=== PATIENT | female | born 1950 ===

== ENCOUNTER 2021-05-15 08:09 | Outpatient (REF) | payer MEDICARE, MEDICAID, SELFPAY ==
[2021-05-15 11:09] LABS: MANUAL DIFF FLAG NO
[2021-05-15 11:11] LABS: Basophils Percent Auto 0.5 % (0-2); Eosinophils Percent Auto 0.9 % (0-4); Hemoglobin 13.5 g/dl (12.0-16.0); Imm Gran Abs Auto 0.01 X10*3/uL (0.00-0.03); Imm Gran Pct Auto 0.2 % (0.0-0.4); Lymphocytes Absolute Auto 2.3 X10*3/uL (1.2-4.9); Lymphocytes Percent Auto 54.7 % (20-40); Mean Corpuscular HGB Conc 31.4 g/dl (31.0-35.0); Mean Corpuscular Hemoglobin 27.2 pg (27.0-33.0); Mean Corpuscular Volume 86.7 fL (80-98); Mean Platelet Volume 12.4 fL (9.4-12.3); Monocytes Absolute Auto 0.4 X10*3/uL (0.1-1.2); Monocytes Percent Auto 10.3 % (2-11); Neutrophils Absolute Auto 1.4 X10*3/uL (2.0-8.3); Neutrophils Percent Auto 33.4 % (45-73); Platelet Count 221 X10*3/uL (160-400); Red Blood Count 4.96 X10*6/uL (4.20-5.50); White Blood Count 4.3 X10*3/uL (4.8-10.8)
[2021-05-15 11:23] LABS: Alanine Aminotransferase 20 U/L (0-31); Albumin Level 4.7 g/dL (3.5-5.0); Alkaline Phosphatase 94 U/L (39-117); Anion Gap 14 (12-20); Aspartate Amino Transferase 22 U/L (5-31); Bilirubin Total 0.7 mg/dL (0.0-1.0); Blood Urea Nitrogen 13 mg/dL (9-16); Calcium 9.9 mg/dL (8.4-10.2); Carbon Dioxide 27 mmol/L (22-29); Chloride 105 mmol/L (96-108); Cholesterol 184 mg/dL; Estimated Glomerular Filt Rate > 60; Glucose Fasting 140 mg/dL (60-99); HDL Cholesterol 60 mg/dL; LDL Cholesterol Calculated 104 mg/dl; Potassium 4.6 mmol/L (3.3-5.1); Sodium 141 mmol/L (135-145); Total Protein 7.5 g/dL (6.5-8.0); Triglycerides 101 mg/dL
[2021-05-15 11:24] LABS: Estimated Average Glucose 163 mg/dL; Hemoglobin A1c % 7.3 %
[2021-05-15 11:30] LABS: Creatinine Urine 74.48 mg/dL; Microalbum/Creatinine Ratio Ur 6.7 ug/mg cr
[2021-05-17 02:27] LABS: LDL Cholesterol Direct 94 mg/dL (<100)
== END 2021-05-15 08:10 | disposition home or self-care (01) ==
LOC: HO.HMGCLDS 08:09
PROVIDERS: PCP Internal Medicine; Visit Provider Internal Medicine
DX: E13.9 Other specified diabetes mellitus without complications (principal); R03.0 Elevated blood-pressure reading, without diagnosis of hypertension; R00.0 Tachycardia, unspecified
CPT/HCPCS: 36415; 80053; 80061; 82043; 83036; 83721; 85025

== ENCOUNTER 2021-10-25 10:12 | Outpatient (REF) | payer MEDICARE, MEDICAID, SELFPAY ==
[2021-10-25 12:12] LABS: Alanine Aminotransferase 27 U/L (0-31); Albumin Level 4.6 g/dL (3.5-5.0); Alkaline Phosphatase 93 U/L (39-117); Anion Gap 13 (12-20); Aspartate Amino Transferase 22 U/L (5-31); Bilirubin Total 0.7 mg/dL (0.0-1.0); Blood Urea Nitrogen 13 mg/dL (9-16); Calcium 10.1 mg/dL (8.4-10.2); Carbon Dioxide 28 mmol/L (22-29); Chloride 104 mmol/L (96-108); Estimated Glomerular Filt Rate > 60; Glucose Random 131 mg/dL (60-115); Potassium 5.1 mmol/L (3.3-5.1); Sodium 140 mmol/L (135-145); Total Protein 7.4 g/dL (6.5-8.0)
[2021-10-25 12:22] LABS: Estimated Average Glucose 163 mg/dL; Hemoglobin A1c % 7.3 %
== END 2021-10-25 10:13 | disposition home or self-care (01) ==
LOC: HO.HMGCLDS 10:12
PROVIDERS: Visit Provider Internal Medicine
DX: E13.9 Other specified diabetes mellitus without complications (principal)
CPT/HCPCS: 36415; 80053; 83036

== ENCOUNTER 2022-02-04 07:35 | Outpatient (REF) | payer MEDICARE, MEDICAID, SELFPAY ==
[2022-02-04 11:46] LABS: Alanine Aminotransferase 19 U/L (0-31); Albumin Level 4.4 g/dL (3.5-5.0); Alkaline Phosphatase 91 U/L (39-117); Anion Gap 11 (12-20); Aspartate Amino Transferase 22 U/L (5-31); Bilirubin Total 0.5 mg/dL (0.0-1.0); Blood Urea Nitrogen 18 mg/dL (9-16); Calcium 9.3 mg/dL (8.4-10.2); Carbon Dioxide 28 mmol/L (22-29); Chloride 105 mmol/L (96-108); Estimated Glomerular Filt Rate > 60; Glucose Random 131 mg/dL (60-115); Potassium 4.3 mmol/L (3.3-5.1); Sodium 140 mmol/L (135-145)
[2022-02-04 12:14] LABS: Estimated Average Glucose 174 mg/dL; Hemoglobin A1c % 7.7 %
== END 2022-02-04 07:36 | disposition home or self-care (01) ==
LOC: HO.HMGCLDS 07:35
PROVIDERS: Visit Provider Internal Medicine
DX: E13.9 Other specified diabetes mellitus without complications (principal)
CPT/HCPCS: 36415; 80053; 83036

== ENCOUNTER 2022-06-04 07:42 | Outpatient (REF) | payer MEDICARE, MEDICAID, SELFPAY ==
[2022-06-04 11:57] LABS: Estimated Average Glucose 169 mg/dL; Hemoglobin A1c % 7.5 %
[2022-06-04 12:15] LABS: Alanine Aminotransferase 20 U/L (0-31); Albumin Level 4.6 g/dL (3.5-5.0); Alkaline Phosphatase 95 U/L (39-117); Anion Gap 15 (12-20); Aspartate Amino Transferase 25 U/L (5-31); Bilirubin Total 0.5 mg/dL (0.0-1.0); Blood Urea Nitrogen 14 mg/dL (9-16); Calcium 9.6 mg/dL (8.4-10.2); Carbon Dioxide 27 mmol/L (22-29); Chloride 104 mmol/L (96-108); Cholesterol 189 mg/dL; Estimated Glomerular Filt Rate > 60; Glucose Fasting 131 mg/dL (60-99); HDL Cholesterol 64 mg/dL; LDL Cholesterol Calculated 106 mg/dl; Potassium 4.6 mmol/L (3.3-5.1); Sodium 141 mmol/L (135-145); Total Protein 7.4 g/dL (6.5-8.0); Triglycerides 97 mg/dL
[2022-06-04 13:16] LABS: Creatinine Urine 48.67 mg/dL; Microalbumin Urine < 5.0 mg/L
== END 2022-06-04 07:43 | disposition home or self-care (01) ==
LOC: HO.HMGCLDS 07:42
PROVIDERS: PCP Internal Medicine; Visit Provider Internal Medicine
DX: E13.9 Other specified diabetes mellitus without complications (principal)
CPT/HCPCS: 36415; 80053; 80061; 82043; 83036

== ENCOUNTER 2023-02-09 10:32 | Outpatient (REF) | payer MEDICARE, MEDICAID, SELFPAY | END 2023-02-09 10:33 | disposition home or self-care (01) | LOC: HO.HMGCLDS 10:32 | PROVIDERS: PCP Internal Medicine; Visit Provider Internal Medicine | DX: E13.9 Other specified diabetes mellitus without complications (principal); I10 Essential (primary) hypertension | CPT/HCPCS: 36415; 80053; 80061; 82043; 83036; 85025 ==

== ENCOUNTER 2023-05-08 10:13 | Outpatient (REF) | payer MEDICARE, MEDICAID, SELFPAY ==
[2023-05-08 13:58] LABS: Estimated Average Glucose 177 mg/dL; Hemoglobin A1c % 7.8 % (<6.0)
[2023-05-08 14:37] LABS: Alanine Aminotransferase 25 U/L (0-31); Albumin Level 4.6 g/dL (3.5-5.0); Alkaline Phosphatase 86 U/L (39-117); Anion Gap 15 (12-20); Aspartate Amino Transferase 22 U/L (5-31); Bilirubin Total 0.7 mg/dL (0.0-1.0); Blood Urea Nitrogen 10 mg/dL (9-16); Calcium 10.1 mg/dL (8.4-10.2); Carbon Dioxide 27 mmol/L (22-29); Chloride 103 mmol/L (96-108); Estimated Glomerular Filt Rate > 60; Glucose Random 144 mg/dL (60-115); Potassium 4.1 mmol/L (3.3-5.1); Sodium 141 mmol/L (135-145); Total Protein 7.9 g/dL (6.5-8.0)
== END 2023-05-08 10:14 | disposition home or self-care (01) ==
LOC: HO.HMGCLDS 10:13
PROVIDERS: PCP Internal Medicine; Visit Provider Internal Medicine
DX: E13.9 Other specified diabetes mellitus without complications (principal); I10 Essential (primary) hypertension
CPT/HCPCS: 36415; 80053; 83036

== ENCOUNTER 2023-05-10 09:41 | Outpatient (AMB) | payer MEDICARE, MEDICAID, SELFPAY ==
[2023-05-10 09:45] VITALS: BP 152/82; PULSE 105; O2SAT 98; BMI 26.6
--- NOTE | 2023-05-10 09:45 | MHC.PC.OV ---
Vital Signs 05/10/23 09:45 Height 5 ft 5 in Weight 160 lb BMI 26.6 BP 152/82 H Blood Pressure Location Lt brachial Position Sitting Pulse 105 H Pulse Source Pulse Oximeter Pulse Oximetry (%) 98 Oxygen Delivery Method Room Air Intake Visit Reasons: 3m follow up Allergies diphtheria,pertussis (acell),tetanu Allergy (Unknown, Verified 05/10/23 09:45) extensive swelling, redness, redness and itching Medication List - Last Reconciled 05/10/23 by Lo Dodge MD glimepiride 2 mg PO DAILY 90 days losartan 25 mg PO DAILY 90 days losartan 50 mg PO DAILY Tobacco use date assessed: 05/10/23 Fall risk assessment: 1 Fall in past year Last assessed Fall Risk: 05/10/23 Dental Screening Dental Screen Date: 05/10/23 Did you have a dental visit in the last 12 months?: Yes Did you have a dental problem in the last 6 months where you did not have access to dental care?: No Was dental information given to patient?: Patient has dentist HPI 3m follow up HPI Details Patient is 72-year-old female came in today for her regular follow-up appointment Patient says that she fell 25 of April while walking in the morning she lost her footing and fell on her knee encountering skin injury Patient went to [facility] Emergency Room where x-ray was done, patient says that she was told there is no bony injury. She was started on cephalexin because the wound was study and was given a tetanus vaccine. She has finished antibiotic On examination left skin injury is healing well there is no signs of infection, patient may continue to cover it until completely healed. She is walking fine there is no pain while walking she is taking Tylenol. Diabetes mellitus: Patient is on glimepiride 2 mg she does not want to change the medication I wanted to change it to Jardiance Hemoglobin A1c came back at 7.8 she recently had labs done this month. Blood pressure continued to be high in 150s systolic it was on 55 in emergency room as well I am increasing her losartan dose to 50 mg. Follow-up 3 months labs to be done before visit. 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 Sister No problems noted. Sister No problems noted. Sister No problems noted. Son No problems noted. Daughter No problems noted. Social History Housing: House Alcohol intake: never Patient Tobacco Use Status: Never used Tobacco e-Cigarette/Vaping Use: Never Used service: No Current occupational status: retired Cognitive needs: No Hearing needs: No Vision needs: Yes Questionnaire PHQ-9 Over the last 2 weeks, how often have you been bothered by any of the following problems? 73088 - PHQ-9 Billing: Patient declined-do not bill Source: Developed by Drs. Nilesh López, Virginia Morrison, Baldemar Carbajal and colleagues, with an educational josafat from [employer]. Thrive Questionnaire Date Thrive assessed: 05/10/23 I am a: Patient What is your living situation today?: I choose not to answer this question Within the past 12 months, did the food you bought not last and you didn't have the money to get more?: I choose not to answer this question Within the past 12 months, did you worry whether your food would run out before you got money to buy more?: I choose not to answer this question Do you have trouble paying for medicines?: I choose not to answer this question Do you have trouble getting transportation to medical appointments?: I choose not to answer this question Do you have trouble paying your heating and electricity bill?: I choose not to answer this question Do you have trouble taking care of your child, family member or friend?: I choose not to answer this question Do you have trouble with day-to-day activities such as bathing, preparing meals, shopping, managing finances, etc.?: I choose not to answer this question Are you currently unemployed and looking for a job?: I choose not to answer this question Are you interested in more education?: I choose not to answer this question Currently or been in a relationship where the following occur: I choose not to answer this question KODY-7 AMB Questionnaire KODY-7 Date KODY - 7 assessed: 05/10/23 Source: Developed by Drs. Nilesh López, Virginia Morrison, Baldemar Carbajal and colleagues, with an educational josafat from [employer]. KODY-7 Assessment Billing KODY-7 Assessment Tool: pt declined-do not bill Review of Systems Const Denies chills and Denies fever(s) ENT Denies epistaxis and Denies nasal discharge Card Denies chest pain Resp Denies chest congestion, Denies cough and Denies hemoptysis GI Denies diarrhea and Denies nausea Skin/Breast Denies rash Neuro Reports no additional complaints Psych Reports no additional complaints Endo Reports no additional complaints Physical exam (Primary Care) Vital Signs: Last Vital Signs Pulse 105 H 05/10/23 09:45 BP 152/82 H 05/10/23 09:45 Pulse Ox 98 05/10/23 09:45 Oxygen Delivery Method Room Air 05/10/23 09:45 BMI result Body Mass Index 26.6 Tobacco/Smoking Status: Tobacco use Status Tobacco use date assessed 05/10/23 05/10/23 09:53 Patient Tobacco Use Status Never used Tobacco 05/10/23 09:53 e-Cigarette/Vaping Use Never Used 05/10/23 09:53 Thrive Assessment: Date of Thrive Assessment Date Thrive assessed 05/10/23 05/10/23 09:53 Currently or been in a relationship where the following occur: I choose not to answer this question Const General: cooperative, comfortable and no acute distress Orientation/consciousness: patient oriented x3 HENMT Head: Yes normocephalic Eyes General: appearance normal, both eyes and all related structures Neck Neck: Yes supple Resp Effort & Inspection: normal respiratory effort, no cough and no stridor Cardio Rhythm: regular rhythm Heart sounds: S1 normal heart sound present and S2 normal heart sound present Skin General skin exam: turgor normal Neuro General: patient oriented x3, tone normal and moves all extremities Extrem Elbow/forearm/wrist images: 1. 3 cm by 2 cm healing skin laceration without any signs of inflammation or infection Right lower extremity: no edema Left lower extremity: no edema Assessment and Plan Assessment & Plan (1) Diabetes 1.5, managed as type 2: Code(s): E13.9 - Other specified diabetes mellitus without complications (2) Hypertension, essential: Code(s): I10 - Essential (primary) hypertension (3) Left knee injury: Code(s): S89.92XA - Unspecified injury of left lower leg, initial encounter Qualifiers: Encounter type: initial encounter Qualified Code(s): S89.92XA - Unspecified injury of left lower leg, initial encounter (4) Laceration of skin of left knee without complication: Code(s): S81.012A - Laceration without foreign body, left knee, initial encounter Qualifiers: Encounter type: initial encounter Qualified Code(s): S81.012A - Laceration without foreign body, left knee, initial encounter (5) Fall (on)(from) sidewalk curb, initial encounter: Code(s): W10.1XXA - Fall (on)(from) sidewalk curb, initial encounter Plan Patient is 72-year-old female came in today for her regular follow-up appointment Patient says that she fell of April while walking in the morning she lost her footing and fell on her knee encountering skin injury Patient went to [facility] Emergency Room where x-ray was done, patient says that she was told there is no bony injury. She was started on cephalexin because the wound was study and was given a tetanus vaccine. She has finished antibiotic On examination left skin injury is healing well there is no signs of infection, patient may continue to cover it until completely healed. She is walking fine there is no pain while walking she is taking Tylenol. Diabetes mellitus: Patient is on glimepiride 2 mg she does not want to change the medication I wanted to change it to Jardiance Hemoglobin A1c came back at 7.8 she recently had labs done this month. Blood pressure continued to be high in 150s systolic it was on 55 in emergency room as well I am increasing her losartan dose to 50 mg. Follow-up 3 months labs to be done before visit. Orders: Orders Hemoglobin A1c 3 Months E13.9 - Other specified diabetes mellitus without complications, I10 - Essential (primary) hypertension Complete Blood Count Auto Diff 3 Months E13.9 - Other specified diabetes mellitus without complications, I10 - Essential (primary) hypertension Comprehensive Met. Panel 3 Months E13.9 - Other specified diabetes mellitus without complications, I10 - Essential (primary) hypertension Medications: New losartan 50 mg PO DAILY 90 tabs 0RF Discontinued losartan Discontinued Reason: Doctor's Order 25 mg PO DAILY 90 days 90 tabs 0RF Coding Level of Care Code Est Pt Level 4 (87323) Diagnoses Diabetes 1.5, managed as type 2 E13.9 Hypertension, essential I10 Injury of left knee, initial encounter S89.92XA Encounter type: initial encounter Laceration of skin of left knee without complication, initial encounter S81.012A Encounter type: initial encounter Fall (on)(from) sidewalk curb, initial encounter W10.1XXA
== END 2023-05-10 10:20 | disposition home or self-care (01) ==
PROVIDERS: PCP Internal Medicine; Visit Provider Internal Medicine
DX: E13.9 Other specified diabetes mellitus without complications (principal); I10 Essential (primary) hypertension; S89.92XA Unspecified injury of left lower leg, initial encounter; S81.012A Laceration without foreign body, left knee, initial encounter; W10.1XXA Fall (on)(from) sidewalk curb, initial encounter
CPT/HCPCS: 99214

== ENCOUNTER 2023-09-14 09:27 | Outpatient (REF) | payer MEDICARE, MEDICAID, SELFPAY ==
[2023-09-14 11:43] LABS: MANUAL DIFF FLAG NO
[2023-09-14 12:07] LABS: Basophils Percent Auto 0.2 % (0-2); Eosinophils Percent Auto 0.4 % (0-4); Estimated Average Glucose 177 mg/dL; Hemoglobin 13.2 g/dl (12.0-16.0); Hemoglobin A1c % 7.8 % (<6.0); Imm Gran Abs Auto 0.01 X10*3/uL (0.00-0.03); Imm Gran Pct Auto 0.2 % (0.0-0.4); Lymphocytes Absolute Auto 2.7 X10*3/uL (1.2-4.9); Mean Corpuscular HGB Conc 31.4 g/dl (31.0-35.0); Mean Corpuscular Hemoglobin 27.4 pg (27.0-33.0); Mean Corpuscular Volume 87.1 fL (80.0-98.0); Mean Platelet Volume 11.9 fL (9.4-12.3); Monocytes Absolute Auto 0.4 X10*3/uL (0.1-1.2); Monocytes Percent Auto 8.7 % (2-11); Neutrophils Absolute Auto 1.4 x10*3/uL (2.0-8.3); Neutrophils Percent Auto 30.5 % (45-73); Platelet Count 219 X10*3/uL (160-400); Red Blood Count 4.82 X10*6/uL (4.20-5.50); White Blood Count 4.5 X10*3/uL (4.8-10.8)
[2023-09-14 12:32] LABS: Alanine Aminotransferase 23 U/L (0-31); Albumin Level 4.6 g/dL (3.5-5.0); Alkaline Phosphatase 84 U/L (39-117); Anion Gap 13 (12-20); Aspartate Amino Transferase 26 U/L (5-31); Bilirubin Total 0.8 mg/dL (0.0-1.0); Blood Urea Nitrogen 12 mg/dL (9-16); Calcium 10.2 mg/dL (8.4-10.2); Carbon Dioxide 28 mmol/L (22-29); Chloride 102 mmol/L (96-108); Estimated Glomerular Filt Rate > 60; Glucose Random 147 mg/dL (60-115); Potassium 4.3 mmol/L (3.3-5.1); Sodium 139 mmol/L (135-145); Total Protein 7.6 g/dL (6.5-8.0)
== END 2023-09-14 09:28 | disposition home or self-care (01) ==
LOC: HO.HMGCLDS 09:27
PROVIDERS: PCP Internal Medicine; Visit Provider Internal Medicine
DX: I10 Essential (primary) hypertension (principal); E13.9 Other specified diabetes mellitus without complications
CPT/HCPCS: 36415; 80053; 83036; 85025

== ENCOUNTER 2023-09-26 13:25 | Outpatient (AMB) | payer MEDICARE, MEDICAID, SELFPAY ==
[2023-09-26 13:29] VITALS: BP 158/88; PULSE 73; O2SAT 98; BMI 26.2
--- NOTE | 2023-09-26 13:29 | A.OFFPC_ITS ---
Vital Signs 09/26/23 13:29 Height 5 ft 5 in Weight 157 lb 4 oz BMI 26.2 BP 158/88 H Blood Pressure Location Lt brachial Position Sitting Pulse 73 Pulse Source Pulse Oximeter Pulse Oximetry (%) 98 Oxygen Delivery Method Room Air Intake Visit Reasons: F/U per [place] Allergies diphtheria,pertussis (acell),tetanu Allergy (Unknown, Verified 09/26/23 13:29) extensive swelling, redness, redness and itching Medication List - Last Reconciled 09/26/23 by Lo Dodge MD glimepiride 2 mg PO DAILY 90 days losartan 50 mg PO DAILY Tobacco use date assessed: 09/26/23 Fall risk assessment: 1 Fall in past year Last assessed Fall Risk: 09/26/23 Dental Screening Dental Screen Date: 09/26/23 Did you have a dental visit in the last 12 months?: Yes Did you have a dental problem in the last 6 months where you did not have access to dental care?: No Was dental information given to patient?: Patient has dentist HPI F/U per [place] HPI Details Patient is 73-year-old female came in today for her regular follow-up appointment Patient says that every now and then she get left-sided chest pain She says that also sometimes it gets worse when she moves her left arm and she feels tingling in her 5th digit Since she is diabetic I have gotten EKG today which shows normal sinus rhythm no acute findings Her previous EKG was in 2020 that was within normal limit Most likely patient is having lower cervical radiculitis or upper thoracic radiculitis Diabetes mellitus: Patient is on glimepiride 2 mg I am increasing the dose to glimepiride 4 mg, however I would rather change her to Januvia or Jardiance Hemoglobin A1c came back at 7.8 she recently had labs done this month. Blood pressure continued to be high in 150s systolic , patient is on losartan 50 mg She says that at home it is running around 130s and 120s systolic It seems as if patient have white coat hypertension as well Patient have chronic mild neutropenia, we will continue to monitor Follow-up 3 months labs to be done before visit. REPLACED BY [facility] Medical History PPD positive Colonoscopy refused Diabetes 1.5, managed as type 2 Surgical History History of hysterectomy Family History Father Diabetes mellitus Mother No problems noted. Sister No problems noted. Sister No problems noted. Sister No problems noted. Son No problems noted. Daughter No problems noted. Social History Housing: House Alcohol intake: never Patient Tobacco Use Status: Never used Tobacco e-Cigarette/Vaping Use: Never Used service: No Current occupational status: retired Cognitive needs: No Hearing needs: No Vision needs: Yes Questionnaire PHQ-9 Over the last 2 weeks, how often have you been bothered by any of the following problems? 1. Little interest or pleasure in doing things: not at all 2. Feeling down, depressed, or hopeless: not at all 3. Trouble falling or staying asleep, or sleeping too much: not at all 4. Feeling tired or having little energy: not at all 5. Poor appetite or overeating: not at all 6. Feeling bad about yourself - or that you are a failure or have let yourself or your family down: not at all 7. Trouble concentrating on things, such as reading the newspaper or watching television: not at all 8. Moving or speaking so slowly that other people could have noticed. Or the opposite - being so fidgety or restless that you have been moving around a lot more than usual: not at all 9. Thoughts that you would be better off or of hurting yourself in some way: not at all Total score: 0 Depression Screening Interpretation: Negative Depression Screening Done: Yes 66864 - PHQ-9 Billing: Yes Source: Developed by Drs. Nilesh López, Virginia Morrison, Baldemar Carbajal and colleagues, with an educational josafat from [employer]. Thrive Questionnaire Date Thrive assessed: 09/26/23 I am a: Patient What is your living situation today?: I have a steady place to live Within the past 12 months, did the food you bought not last and you didn't have the money to get more?: Never true Within the past 12 months, did you worry whether your food would run out before you got money to buy more?: Never true Do you have trouble paying for medicines?: No Do you have trouble getting transportation to medical appointments?: No Do you have trouble paying your heating and electricity bill?: No Do you have trouble taking care of your child, family member or friend?: No Do you have trouble with day-to-day activities such as bathing, preparing meals, shopping, managing finances, etc.?: No Are you currently unemployed and looking for a job?: No Are you interested in more education?: No Please select the resources that you would like help with: None Currently or been in a relationship where the following occur: no concerns reported THRIVE Score: 0 AUDIT C Alcohol Use Questionnaire (AUDIT-C) 1. How often do you have a drink containing alcohol?: Never 3. How often do you have six or more drinks on one occasion?: Never Total Score: 0 Score Reviewed/Action Taken: Yes KODY-7 AMB Questionnaire KODY-7 Date KODY - 7 assessed: 09/26/23 Feeling nervous, anxious, or on edge: 0 = Not at all Not being able to stop or control worryin = Not at all Worrying too much about different things: 0 = Not at all Trouble relaxin = Not at all Being so restless that it is hard to sit still: 0 = Not at all Becoming easily annoyed or irritable: 0 = Not at all Feeling afraid as if something awful might happen: 0 = Not at all Total KODY-7 score (0-4 normal; 5-9 mild; 10-14 moderate; 15-21 severe): 0 Source: Developed by Drs. Nilesh López, Virginia Morrison, Baldemar Carbajal and colleagues, with an educational josafat from [employer]. KODY-7 Assessment Billing KODY-7 Assessment Tool: KODY-7 Assessment 61711 Review of Systems Const Denies chills and Denies fever(s) ENT Denies epistaxis and Denies nasal discharge Resp Denies chest congestion, Denies cough and Denies hemoptysis GI Denies diarrhea and Denies nausea Skin/Breast Denies rash Neuro Reports no additional complaints Psych Reports no additional complaints Endo Reports no additional complaints Physical exam (Primary Care) Vital Signs: Last Vital Signs Pulse 73 09/26/23 13:29 BP 158/88 H 09/26/23 13:29 Pulse Ox 98 09/26/23 13:29 Oxygen Delivery Method Room Air 09/26/23 13:29 BMI result Body Mass Index 26.2 Tobacco/Smoking Status: Tobacco use Status Tobacco use date assessed 09/26/23 09/26/23 13:31 Patient Tobacco Use Status Never used Tobacco 09/26/23 13:31 e-Cigarette/Vaping Use Never Used 09/26/23 13:31 PHQ-9: PHQ-9 Score PHQ-9: Total score 0 09/26/23 13:39 Depression Screening Interpretation: Negative Thrive Assessment: Date of Thrive Assessment Date Thrive assessed 09/26/23 09/26/23 13:39 Currently or been in a relationship where the following occur: no concerns reported Const General: cooperative, comfortable and no acute distress Orientation/consciousness: patient oriented x3 HENMT Head: Yes normocephalic Eyes General: appearance normal, both eyes and all related structures Neck Neck: Yes supple Resp Effort & Inspection: normal respiratory effort, no cough and no stridor Cardio Rhythm: regular rhythm Heart sounds: S1 normal heart sound present and S2 normal heart sound present Skin General skin exam: turgor normal Neuro General: patient oriented x3, tone normal and moves all extremities Extrem Right lower extremity: no edema Left lower extremity: no edema Office Procedures EKG [id number], Complete Assessment and Plan Assessment & Plan (1) Diabetes 1.5, managed as type 2: Code(s): E13.9 - Other specified diabetes mellitus without complications (2) Hypertension, essential: Code(s): I10 - Essential (primary) hypertension (3) Colon cancer screening: Code(s): Z12.11 - Encounter for screening for malignant neoplasm of colon (4) Chest pain: Code(s): R07.9 - Chest pain, unspecified Qualifiers: Chest pain type: other chest pain Qualified Code(s): R07.89 - Other chest pain (5) White coat syndrome with hypertension: Code(s): I10 - Essential (primary) hypertension Plan Patient is 73-year-old female came in today for her regular follow-up appointment Patient says that every now and then she get left-sided chest pain She says that also sometimes it gets worse when she moves her left arm and she feels tingling in her 5th digit Since she is diabetic I have gotten EKG today which shows normal sinus rhythm no acute findings Her previous EKG was in 2020 that was within normal limit Most likely patient is having lower cervical radiculitis or upper thoracic ra diculitis Diabetes mellitus: Patient is on glimepiride 2 mg I am increasing the dose to glimepiride 4 mg, however I would rather change her to Januvia or Jardiance Hemoglobin A1c came back at 7.8 she recently had labs done this month. Blood pressure continued to be high in 150s systolic , patient is on losartan 50 mg She says that at home it is running around 130s and 120s systolic It seems as if patient have white coat hypertension as well Patient have chronic mild neutropenia, we will continue to monitor Follow-up 3 months labs to be done before visit. Orders: Orders AMB EKG-In Office Today R07.9 - Chest pain, unspecified Hemoglobin A1c Today E13.9 - Other specified diabetes mellitus without complications, I10 - Essential (primary) hypertension, R03.0 - Elevated blood- pressure reading, without diagnosis of hypertension Comprehensive Met. Panel Today E13.9 - Other specified diabetes mellitus without complications, I10 - Essential (primary) hypertension, R03.0 - Elevated blood- pressure reading, without diagnosis of hypertension Complete Blood Count Auto Diff Today E13.9 - Other specified diabetes mellitus without complications, I10 - Essential (primary) hypertension, R03.0 - Elevated blood-pressure reading, without diagnosis of hypertension Microalbumin, Random (w Creat) Today E13.9 - Other specified diabetes mellitus without complications, I10 - Essential (primary) hypertension, R03.0 - Elevated blood-pressure reading, without diagnosis of hypertension LDL Cholesterol Direct Today E13.9 - Other specified diabetes mellitus without complications, I10 - Essential (primary) hypertension, R03.0 - Elevated blood- pressure reading, without diagnosis of hypertension Referrals Gastroenterology Referral Z12.11 - Encounter for screening for malignant neoplasm of colon Medications: Changed From glimepiride 2 mg PO DAILY 90 days 90 tabs 1RF To glimepiride 4 mg PO DAILY 90 tabs 0RF 90 days Coding Level of Care Code Est Pt Level 4 (37528) Diagnoses Diabetes 1.5, managed as type 2 E13.9 Hypertension, essential I10 Colon cancer screening Z12.11 Other chest pain R07.89 Chest pain type: other chest pain White coat syndrome with hypertension I10 CPT Codes EKG - CPT: 49957-Cvyivefwryvojvegh, Complete ([id number]) Additional Codes KODY-7 Assessment Billing - KODY-7 Assessment Tool: KODY-7 Assessment 80642 ([id number])
== END 2023-09-26 14:06 | disposition home or self-care (01) ==
LOC: HO.HMGC 13:25
PROVIDERS: PCP Internal Medicine; Visit Provider Internal Medicine
DX: E13.9 Other specified diabetes mellitus without complications (principal); I10 Essential (primary) hypertension; Z12.11 Encounter for screening for malignant neoplasm of colon; R07.89 Other chest pain
CPT/HCPCS: 93000; 99214

== ENCOUNTER 2023-11-27 09:30 | Outpatient (REF) | payer MEDICARE, MEDICAID, SELFPAY ==
[2023-11-27 10:24] LABS: MANUAL DIFF FLAG NO
[2023-11-27 10:31] LABS: Basophils Percent Auto 0.5 % (0-2); Eosinophils Percent Auto 0.7 % (0-4); Hematocrit 40.9 % (37.0-47.0); Hemoglobin 12.8 g/dl (12.0-16.0); Imm Gran Abs Auto 0.01 X10*3/uL (0.00-0.03); Imm Gran Pct Auto 0.2 % (0.0-0.4); Lymphocytes Absolute Auto 2.5 X10*3/uL (1.2-4.9); Lymphocytes Percent Auto 59.6 % (20-40); Mean Corpuscular HGB Conc 31.3 g/dl (31.0-35.0); Mean Corpuscular Hemoglobin 27.5 pg (27.0-33.0); Mean Platelet Volume 11.4 fL (9.4-12.3); Monocytes Absolute Auto 0.3 X10*3/uL (0.1-1.2); Monocytes Percent Auto 8.2 % (2-11); Neutrophils Absolute Auto 1.3 x10*3/uL (2.0-8.3); Neutrophils Percent Auto 30.8 % (45-73); Platelet Count 274 X10*3/uL (160-400); Red Blood Count 4.65 X10*6/uL (4.20-5.50); Red Cell Distribution Width 12.8 % (11.0-16.0); White Blood Count 4.1 X10*3/uL (4.8-10.8)
[2023-11-27 10:39] LABS: Estimated Average Glucose 192 mg/dL; Hemoglobin A1c % 8.3 % (<6.0)
[2023-11-27 11:00] LABS: Alanine Aminotransferase 18 U/L (0-31); Albumin Level 4.5 g/dL (3.5-5.0); Alkaline Phosphatase 98 U/L (39-117); Anion Gap 11 (12-20); Aspartate Amino Transferase 19 U/L (5-31); Bilirubin Total 0.9 mg/dL (0.0-1.0); Blood Urea Nitrogen 11 mg/dL (9-16); Calcium 9.8 mg/dL (8.4-10.2); Carbon Dioxide 29 mmol/L (22-29); Chloride 103 mmol/L (96-108); Estimated Glomerular Filt Rate > 60; Glucose Random 148 mg/dL (60-115); Potassium 4.4 mmol/L (3.3-5.1); Sodium 139 mmol/L (135-145); Total Protein 7.4 g/dL (6.5-8.0)
[2023-11-27 13:53] LABS: Creatinine Urine 28.79 mg/dL; Microalbumin Urine < 5.0 mg/L
[2023-11-28 16:03] LABS: LDL Cholesterol Direct 95 mg/dL (<100)
== END 2023-11-27 09:31 | disposition home or self-care (01) ==
LOC: HO.HMGCLDS 09:30
PROVIDERS: PCP Internal Medicine; Visit Provider Internal Medicine
DX: E13.9 Other specified diabetes mellitus without complications (principal); R03.0 Elevated blood-pressure reading, without diagnosis of hypertension; I10 Essential (primary) hypertension
CPT/HCPCS: 36415; 80053; 82570; 83036; 83721; 85025

== ENCOUNTER 2023-11-28 13:20 | Outpatient (AMB) | payer MEDICARE, MEDICAID, SELFPAY ==
[2023-11-28 13:22] VITALS: BP 148/82; PULSE 85; O2SAT 96; BMI 26.1
--- NOTE | 2023-11-28 13:22 | A.OFFPC_ITS ---
Vital Signs 3 11/28/23 13:22 Height 5 ft 5 in Weight 157 lb 2 oz BMI 26.1 BP 148/82 H Blood Pressure Location Lt brachial Position Sitting Pulse 85 Pulse Source Pulse Oximeter Pulse Oximetry (%) 96 Oxygen Delivery Method Room Air Intake Visit Reasons: 3 month follow up Allergies diphtheria,pertussis (acell),tetanu Allergy (Unknown, Verified 11/28/23 13:28) extensive swelling, redness, redness and itching Medication List - Last Reconciled 11/28/23 by Lo Dodge MD glimepiride 4 mg PO DAILY 90 days losartan 50 mg PO DAILY Tobacco use date assessed: 11/28/23 Fall risk assessment: 1 Fall in past year Last assessed Fall Risk: 11/28/23 Dental Screening Dental Screen Date: 11/28/23 Did you have a dental visit in the last 12 months?: Yes Did you have a dental problem in the last 6 months where you did not have access to dental care?: No Was dental information given to patient?: Patient has dentist HPI 3 month follow up 2 HPI0 Details Patient is 73-year-old female came in today for her regular follow-up appointment Patient says that she fell in April of last year on her left knee, and is now having pain off and on especially when she tried to exercise I have ordered a baseline x-ray of her knee and she will be evaluated by Orthopedic Diabetes mellitus: Patient is on glimepiride 4 mg , hemoglobin A1c has worsened to 8.4, she would like to try metformin again I have sent metformin 500 mg she is to continue with glimepiride as well Hypertension: patient is on losartan 50 mg She says that at home it is running around 130s and 120s systolic It seems as if patient have white coat hypertension as well Patient have chronic mild neutropenia, we will continue to monitor Follow-up 3 months labs to be done before visit. 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 Sister No problems noted. Sister No problems noted. Sister No problems noted. Son No problems noted. Daughter No problems noted. Social History Housing: House Alcohol intake: never Patient Tobacco Use Status: Never used Tobacco e-Cigarette/Vaping Use: Never Used service: No Current occupational status: retired Cognitive needs: No Hearing needs: No Vision needs: Yes Questionnaire Thrive Questionnaire Date Thrive assessed: 09/26/23 AUDIT C Alcohol Use Questionnaire (AUDIT-C) 1. How often do you have a drink containing alcohol?: Never 3. How often do you have six or more drinks on one occasion?: Never Total Score: 0 Score Reviewed/Action Taken: Yes KODY-7 AMB Questionnaire KODY-7 Date KODY - 7 assessed: 09/26/23 Source: Developed by Drs. Nilesh López, Virginia Morrison, Baldemar Carbajal and colleagues, with an educational josafat from [employer]. Review of Systems Const Denies chills and Denies fever(s) ENT Denies epistaxis and Denies nasal discharge Card Denies chest pain Resp Denies chest congestion, Denies cough and Denies hemoptysis GI Denies diarrhea and Denies nausea Skin/Breast Denies rash Neuro Reports no additional complaints Psych Reports no additional complaints Endo Reports no additional complaints Physical exam (Primary Care) Vital Signs: Last Vital Signs Pulse 85 11/28/23 13:22 BP 148/82 H 11/28/23 13:22 Pulse Ox 96 11/28/23 13:22 Oxygen Delivery Method Room Air 11/28/23 13:22 BMI result Body Mass Index 26.1 Tobacco/Smoking Status: Tobacco use Status Tobacco use date assessed 11/28/23 11/28/23 13:29 Patient Tobacco Use Status Never used Tobacco 11/28/23 13:25 e-Cigarette/Vaping Use Never Used 11/28/23 13:25 Thrive Assessment: Date of Thrive Assessment Date Thrive assessed 09/26/23 11/28/23 13:25 Const General: cooperative, comfortable and no acute distress Orientation/consciousness: patient oriented x3 HENMT Head: Yes normocephalic Eyes General: appearance normal, both eyes and all related structures Neck Neck: Yes supple Resp Effort & Inspection: normal respiratory effort, no cough and no stridor Cardio Rhythm: regular rhythm Heart sounds: S1 normal heart sound present and S2 normal heart sound present Skin General skin exam: turgor normal Neuro General: patient oriented x3, tone normal and moves all extremities Extrem Right lower extremity: no edema Left lower extremity: no edema Knee images: 2 1. Discomfort with full flexion Assessment and Plan Assessment & Plan (1) Knee pain, left: Code(s): M25.562 - Pain in left knee Qualifiers: Chronicity: chronic Qualified Code(s): M25.562 - Pain in left knee; G89.29 - Other chronic pain (2) Left knee injury: Code(s): S89.92XA - Unspecified injury of left lower leg, initial encounter Qualifiers: Encounter type: initial encounter Qualified Code(s): S89.92XA - Unspecified injury of left lower leg, initial encounter (3) Diabetes 1.5, managed as type 2: Code(s): E13.9 - Other specified diabetes mellitus without complications (4) Hypertension, essential: Code(s): I10 - Essential (primary) hypertension (5) Neutropenia: Code(s): D70.9 - Neutropenia, unspecified Qualifiers: Neutropenia type: unspecified Qualified Code(s): D70.9 - Neutropenia, unspecified Plan Patient is 73-year-old female came in today for her regular follow-up appointment Patient says that she fell in April of last year on her left knee, and is now having pain off and on especially when she tried to exercise I have ordered a baseline x-ray of her knee and she will be evaluated by Orthopedic Diabetes mellitus: Patient is on glimepiride 4 mg , hemoglobin A1c has worsened to 8.4, she would like to try metformin again I have sent metformin 500 mg she is to continue with glimepiride as well Hypertension: patient is on losartan 50 mg She says that at home it is running around 130s and 120s systolic It seems as if patient have white coat hypertension as well Patient have chronic mild neutropenia, we will continue to monitor Follow-up 3 months labs to be done before visit. Orders: Orders 2 Microalbumin, Random (w Creat) Today E13.9 - Other specified diabetes mellitus without complications XR knee LT 2V Today M25.562 - Pain in left knee Hemoglobin A1c 3 Months E13.9 - Other specified diabetes mellitus without complications, S89.92XA - Unspecified injury of left lower leg, initial encounter Comprehensive Met. Panel 3 Months E13.9 - Other specified diabetes mellitus without complications, S89.92XA - Unspecified injury of left lower leg, initial encounter Referrals 2 Orthopedics Referral M25.562 - Pain in left knee Medications: New 2 metformin 500 mg PO DAILY 90 tabs 1RF Coding Level of Care Code Est Pt Level 4 (50987) Diagnoses Chronic pain of left knee M25.562; G89.29 Chronicity: chronic Injury of left knee, initial encounter S89.92XA Encounter type: initial encounter Diabetes 1.5, managed as type 2 E13.9 Hypertension, essential I10 Neutropenia, unspecified type D70.9 Neutropenia type: unspecified
== END 2023-11-28 13:49 | disposition home or self-care (01) ==
PROVIDERS: PCP Internal Medicine; Visit Provider Internal Medicine
DX: M25.562 Pain in left knee (principal); E13.9 Other specified diabetes mellitus without complications; D70.9 Neutropenia, unspecified; G89.29 Other chronic pain; S89.92XA Unspecified injury of left lower leg, initial encounter; I10 Essential (primary) hypertension
CPT/HCPCS: 99214

== ENCOUNTER 2023-11-28 13:53 | Outpatient (REF) | payer MEDICARE, MEDICAID, SELFPAY ==
--- NOTE | ~2023-11-28 | XR_ITS ---
EXAMINATION: XR KNEE, LEFT CLINICAL INFORMATION: Pain in left knee. COMPARISON: None available. TECHNIQUE: 2 view of the left knee. FINDINGS: Trace joint effusion. Vjdy-ic-sklqherz narrowing of the medial compartment. Tiny medial marginal and posterior patellar osteophytes. XR/XR knee LT 2V IMPRESSION: Mild degenerative changes.
== END 2023-11-28 13:54 | disposition home or self-care (01) ==
LOC: HO.HMGCX 13:53
PROVIDERS: PCP Internal Medicine; Visit Provider Internal Medicine
DX: M25.562 Pain in left knee (principal)
CPT/HCPCS: 73560

== ENCOUNTER → 2023-12-01 10:47 | Outpatient (BNVA) | payer MEDICARE, MEDICAID, SELFPAY | PROVIDERS: PCP Internal Medicine; Visit Provider Nurse Practitioner Family ==

== ENCOUNTER 2023-12-13 10:01 | Outpatient (AMB) | payer MEDICARE, MEDICAID, SELFPAY ==
[2023-12-13 10:03] VITALS: BMI 26.1
--- NOTE | 2023-12-13 10:03 | A.OFFVIS_ITS ---
Vital Signs 12/13/23 10:03 Height 5 ft 5 in Weight 157 lb BMI 26.1 Intake Visit Reasons: [employer]-Chronic pain left knee Intake Note: Tari is a 73 year old female who presents as a new patient with left knee pain and giving way. The patient states that she injured her knee several months ago when she tripped while walking. Since that time her pain and mechanical symptoms have gotten worse. She has failed the last 6 weeks of conservative treatment. She has done physical therapy exercises which aggravated her pain. She has also tried Tylenol and ibuprofen which gave her no relief. She states that her left knee will give out several times per day. 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 Sister No problems noted. Sister No problems noted. Sister No problems noted. Son No problems noted. Daughter No problems noted. Social History (Updated 12/13/23 @ 10:11 by Litzy Aragon CMA) Housing: House Alcohol intake: never Patient Tobacco Use Status: Never used Tobacco e-Cigarette/Vaping Use: Never Used service: No Current occupational status: retired Current occupation: Right hand dominant Cognitive needs: No Hearing needs: No Vision needs: Yes Physical Exam Vital Signs: BMI result Body Mass Index 26.1 Const Other: Well-nourished well-developed very friendly female awake alert and oriented x3 in no acute distress Extrem Other: Bilateral lower extremity examination shows good capillary refill, no skin lesions noted, normal sensation light touch Left knee examination shows a minimal effusion, minimal crepitus with range of motion, tenderness along her medial joint line, positive Lili's test, no instability Results Reviewed Results Reviewed: Standing full weight-bearing x-rays of the patient's left knee show mild joint space narrowing, no acute bony abnormalities Assessment & Plan Assessment & Plan (1) Knee pain, left: Code(s): M25.562 - Pain in left knee Category: Medical Qualifiers: Chronicity: chronic Qualified Code(s): M25.562 - Pain in left knee; G89.29 - Other chronic pain Plan Ms. Burroughs presents with progressively worsening left knee pain and mechanical symptoms most likely due to a tear of her medial meniscus. Thus, I will send the patient for an MRI of her left knee for further evaluation. I will see her back once the MRI is completed to discuss the findings and treatment options. Feel free to call me at any time should questions regarding her orthopedic management arise. Thank you very much for asking me to see this very friendly patient. I spent 20 minutes in reviewing the patient's records and imaging studies, seeing the patient and documenting in the medical record. Orders: Orders MR knee LT wo con 12/13/23 S83.242A - Other tear of medial meniscus, current injury, left knee, initial encounter Coding Level of Care Code New Pt Level 2 (61308) Diagnoses Chronic pain of left knee M25.562; G89.29 Chronicity: chronic
== END 2023-12-13 10:31 | disposition home or self-care (01) ==
PROVIDERS: PCP Internal Medicine; Visit Provider Orthopaedic Surgery
DX: M25.562 Pain in left knee (principal); G89.29 Other chronic pain
CPT/HCPCS: 99203

== ENCOUNTER → 2023-12-13 10:01 | Outpatient (BNVA) | payer MEDICARE, MEDICAID, SELFPAY | PROVIDERS: PCP Internal Medicine; Visit Provider Orthopaedic Surgery | DX: M25.562 Pain in left knee (principal); G89.29 Other chronic pain | CPT/HCPCS: 99202 ==

== ENCOUNTER 2024-04-16 06:20 | Outpatient (REF) | payer MEDICARE, MEDICAID, SELFPAY ==
[2024-04-16 10:35] LABS: Estimated Average Glucose 169 mg/dL; Hemoglobin A1c % 7.5 % (<6.0)
[2024-04-16 10:47] LABS: Alanine Aminotransferase 19 U/L (0-31); Albumin Level 4.3 g/dL (3.5-5.0); Alkaline Phosphatase 89 U/L (39-117); Anion Gap 14 (12-20); Aspartate Amino Transferase 19 U/L (5-31); Bilirubin Total 0.6 mg/dL (0.0-1.0); Blood Urea Nitrogen 14 mg/dL (9-16); Calcium 9.6 mg/dL (8.4-10.2); Carbon Dioxide 28 mmol/L (22-29); Chloride 103 mmol/L (96-108); Estimated Glomerular Filt Rate > 60; Glucose Random 145 mg/dL (60-115); Potassium 4.8 mmol/L (3.3-5.1); Sodium 140 mmol/L (135-145)
[2024-04-16 12:25] LABS: Creatinine Urine 26.13 mg/dL; Microalbumin Urine < 5.0 mg/L
== END 2024-04-16 06:21 | disposition home or self-care (01) ==
LOC: HO.HMGCLDS 06:20
PROVIDERS: PCP Internal Medicine; Visit Provider Internal Medicine
DX: E13.9 Other specified diabetes mellitus without complications (principal); S89.92XA Unspecified injury of left lower leg, initial encounter
CPT/HCPCS: 36415; 80053; 82043; 82570; 83036

== ENCOUNTER 2024-04-16 11:55 | Outpatient (AMB) | payer MEDICARE, MEDICAID, SELFPAY ==
[2024-04-16 11:57] VITALS: BP 142/84; PULSE 75; O2SAT 98; BMI 24.2
--- NOTE | 2024-04-16 11:57 | A.OFFPC_ITS ---
Vital Signs 04/16/24 11:57 Height 5 ft 5 in Weight 145 lb 8 oz BMI 24.2 BP 142/84 H Blood Pressure Location Lt brachial Position Sitting Pulse 75 Pulse Source Pulse Oximeter Pulse Oximetry (%) 98 Oxygen Delivery Method Room Air Intake Visit Reasons: Eye Cataract surgery Allergies diphtheria,pertussis (acell),tetanu Allergy (Unknown, Verified 04/16/24 11:58) extensive swelling, redness, redness and itching Tobacco use date assessed: 04/16/24 Fall risk assessment: No Falls in past year Last assessed Fall Risk: 04/16/24 Dental Screening Dental Screen Date: 04/16/24 Did you have a dental visit in the last 12 months?: Yes Did you have a dental problem in the last 6 months where you did not have access to dental care?: No Was dental information given to patient?: Patient has dentist HPI Eye Cataract surgery HPI Details Patient is a 73-year-old female came in today for preop clearance for cataract surgery This coming by Dr. 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 Sister No problems noted. Sister No problems noted. Sister No problems noted. Son No problems noted. Daughter No problems noted. Social History Housing: House Alcohol intake: never Patient Tobacco Use Status: Never used Tobacco e-Cigarette/Vaping Use: Never Used service: No Current occupational status: retired Current occupation: Right hand dominant Cognitive needs: No Hearing needs: No Vision needs: Yes Questionnaire PHQ-9 Over the last 2 weeks, how often have you been bothered by any of the following problems? 1. Little interest or pleasure in doing things: not at all 2. Feeling down, depressed, or hopeless: not at all 3. Trouble falling or staying asleep, or sleeping too much: not at all 4. Feeling tired or having little energy: not at all 5. Poor appetite or overeating: not at all 6. Feeling bad about yourself - or that you are a failure or have let yourself or your family down: not at all 7. Trouble concentrating on things, such as reading the newspaper or watching television: not at all 8. Moving or speaking so slowly that other people could have noticed. Or the opposite - being so fidgety or restless that you have been moving around a lot more than usual: not at all 9. Thoughts that you would be better off or of hurting yourself in some way: not at all Total score: 0 Depression Screening Interpretation: Negative Depression Screening Done: Yes 48657 - PHQ-9 Billing: Yes Source: Developed by Drs. Nilesh López, Virginia Morrison, Baldemar Carbajal and colleagues, with an educational josafat from [employer]. Thrive Questionnaire Date Thrive assessed: 04/16/24 I am a: Patient What is your living situation today?: I choose not to answer this question Within the past 12 months, did the food you bought not last and you didn't have the money to get more?: I choose not to answer this question Within the past 12 months, did you worry whether your food would run out before you got money to buy more?: I choose not to answer this question Do you have trouble paying for medicines?: I choose not to answer this question Do you have trouble getting transportation to medical appointments?: I choose not to answer this question Do you have trouble paying your heating and electricity bill?: I choose not to answer this question Do you have trouble taking care of your child, family member or friend?: I ch oose not to answer this question Do you have trouble with day-to-day activities such as bathing, preparing meals, shopping, managing finances, etc.?: I choose not to answer this question Are you currently unemployed and looking for a job?: I choose not to answer this question Are you interested in more education?: I choose not to answer this question Please select the resources that you would like help with: None Currently or been in a relationship where the following occur: I choose not to answer THRIVE Score: 0 AUDIT C Alcohol Use Questionnaire (AUDIT-C) 1. How often do you have a drink containing alcohol?: Never 3. How often do you have six or more drinks on one occasion?: Never Total Score: 0 Score Reviewed/Action Taken: Yes KODY-7 AMB Questionnaire KODY-7 Date KODY - 7 assessed: 04/16/24 Feeling nervous, anxious, or on edge: 0 = Not at all Not being able to stop or control worryin = Not at all Worrying too much about different things: 0 = Not at all Trouble relaxin = Not at all Being so restless that it is hard to sit still: 0 = Not at all Becoming easily annoyed or irritable: 0 = Not at all Feeling afraid as if something awful might happen: 0 = Not at all Total KODY-7 score (0-4 normal; 5-9 mild; 10-14 moderate; 15-21 severe): 0 Source: Developed by Drs. Nilesh López, Virginia Morrison, Baldemar Carbajal and colleagues, with an educational josafat from [employer]. KODY-7 Assessment Billing KODY-7 Assessment Tool: KODY-7 Assessment 83181 Review of Systems Const Denies chills and Denies fever(s) ENT Denies epistaxis and Denies nasal discharge Card Denies chest pain Resp Denies chest congestion, Denies cough and Denies hemoptysis GI Denies diarrhea and Denies nausea Skin/Breast Denies rash Neuro Reports no additional complaints Psych Reports no additional complaints Endo Reports no additional complaints Physical exam (Primary Care) Vital Signs: Last Vital Signs Pulse 75 04/16/24 11:57 BP 142/84 H 04/16/24 11:57 Pulse Ox 98 04/16/24 11:57 Oxygen Delivery Method Room Air 04/16/24 11:57 BMI result Body Mass Index 24.2 Tobacco/Smoking Status: Tobacco use Status Tobacco use date assessed 04/16/24 04/16/24 12:01 Patient Tobacco Use Status Never used Tobacco 04/16/24 12:01 e-Cigarette/Vaping Use Never Used 04/16/24 12:01 PHQ-9: PHQ-9 Score PHQ-9: Total score 0 04/16/24 12:16 Depression Screening Interpretation: Negative Thrive Assessment: Date of Thrive Assessment Date Thrive assessed 04/16/24 04/16/24 12:01 Currently or been in a relationship where the following occur: I choose not to answer Const General: cooperative, comfortable and no acute distress Orientation/consciousness: patient oriented x3 HENMT Head: Yes normocephalic Eyes General: appearance normal, both eyes and all related structures Neck Neck: Yes supple Resp Effort & Inspection: normal respiratory effort, no cough and no stridor Cardio Rhythm: regular rhythm Heart sounds: S1 normal heart sound present and S2 normal heart sound present Skin General skin exam: turgor normal Neuro General: patient oriented x3, tone normal and moves all extremities Extrem Right lower extremity: no edema Left lower extremity: no edema Assessment and Plan Assessment & Plan (1) Pre-op evaluation: Code(s): Z01.818 - Encounter for other preprocedural examination (2) Diabetes 1.5, managed as type 2: Code(s): E13.9 - Other specified diabetes mellitus without complications (3) Hypertension, essential: Code(s): I10 - Essential (primary) hypertension (4) Cataract: Code(s): H26.9 - Unspecified cataract Qualifiers: Age-related cataract type: unspecified Cataract type: age-related Laterality: bilateral Qualified Code(s): H25.9 - Unspecified age-related cataract Plan Patient is a 73-year-old female came in today for preop clearance for cataract surgery This coming by Dr. Rapp Left eye 1st Patient is in her usual state of health and offer no complaints today Labs done recently reviewed Hemoglobin A1c 7.5 Patient is stable for cataract surgery Coding Level of Care Code Est Pt Level 4 (04610) Diagnoses Pre-op evaluation Z01.818 Diabetes 1.5, managed as type 2 E13.9 Hypertension, essential I10 Age-related cataract of both eyes, unspecified age-related cataract type H25.9 Age-related cataract type: unspecified Cataract type: age-related Laterality: bilateral Additional Codes KODY-7 Assessment Billing - KODY-7 Assessment Tool: KODY-7 Assessment [id number] ([id number])
== END 2024-04-16 12:19 | disposition home or self-care (01) ==
PROVIDERS: PCP Internal Medicine; Visit Provider Internal Medicine
DX: Z01.818 Encounter for other preprocedural examination (principal); E13.9 Other specified diabetes mellitus without complications; I10 Essential (primary) hypertension; H25.9 Unspecified age-related cataract
CPT/HCPCS: 99214

== ENCOUNTER 2024-05-17 09:31 | Day surgery (SDC) | payer MEDICARE, MEDICAID, SELFPAY ==
[2024-05-15 10:59] VITALS: BMI 24.3
[2024-05-17] MEDS: Lactated Ringers 1,000 ML 100 ML IVCONT (09:52)
[2024-05-17 10:03] VITALS: BP 148/77; PULSE 83; RESP 18; TEMP 36.7; O2SAT 99
[2024-05-17 10:04] VITALS: BMI 23.3
--- NOTE | 2024-05-17 10:06 | MHC.SHP ---
Pre-Procedural Eval Section A - 24 Hr Update-Section A only Date of Service: 05/17/24 Section B - Complete if H&P > 30 days Chief Complaint: screening Details of Present Illness: PPD positive Colonoscopy refused Diabetes 1.5, managed as type 2 Surgical History History of hysterectomy Present Medications: see Short Stay Collaborative assessment Allergies: Allergies Allergy/AdvReac Type Severity Reaction Status Date / Time diphtheria,pertussis Allergy Intermediate extensive Verified 05/17/24 09:37 (acell),tetanu swelling, redness, itching Review of Systems Review of Systems Comment: Ten point ROS negative Exam Exam Comment: Gen appear: No acute distress HEENT: no icterus Chest: No overt resp distress Abd: soft, nontender, nondistended Psych: Stable affect, answering questions appropriately Neuro: A/Ox3 noted to move all extremities spontaneously Ext: no peripheral edema Plan Diagnosis/Plan: Unchanged I have reviewed the history and physical and performed a pertinent physical examination on my patient. No changes have occurred unless specified. Time Spent With Patient Time: Total time managing care of this patient today ____ minutes.
[2024-05-17 10:11] LABS: Glucose, Whole Blood 143 mg/dL (60-115)
--- NOTE | 2024-05-17 10:38 | P.OPN-COLO_ITS ---
Colonoscopy Operative Note Operative Note Date of Service: 05/17/24 Narrative: Procedure: Colonoscopy Indication: Screening Endoscopist: Lupe Cameron MD Anesthesia Provider: Dr Hien Carbone Anesthesia type: MAC Instrument: Olympus [id number]-[id number] Consent: Indication, risks vs benefits, and alternatives were discussed with the patient who gave written informed consent to proceed. EKG, pulse, pulse oximetry and blood pressure were monitored throughout the procedure. Please see anesthesia flowsheet. Procedure: The patient was brought to the procedure room and placed in the left lateral decubitus position. IV medications were administered by the anesthesia provider in attendance. A digital rectal exam was performed which was normal. A distal attachment cap was affixed to the tip of the colonoscope which was then inserted through the anus and advanced through the colon to the cecum at 75 cm,and terminal ileum. Appendiceal orifice and ileocecal valve were identified. Mucosa was carefully examined under high definition white light as the instrument was slowly withdrawn in a retrograde panoramic fashion. Retroflexion was performed in rectum. The procedure was not difficult. There were no immediate obvious complications. The quality of the prep was BBPS: 2+1+2 = inadequate in transverse colon Withdrawal time 6 minutes. Limitations: No limitations. Findings: Mucosa: Normal to cecum and terminal ileum. Protruding lesions: * Medium internal hemorrhoids without stigmata of recent bleeding. Impression: 1. Poor prep 2. Normal colon mucosa to the extent visualised. 3. Internal hemorrhoids Recommendations: - Repeat colonoscopy will be booked within 6-12 months
--- NOTE | 2024-05-17 10:40 | HO.ANESPROP2 ---
Documented by User: Caitlyn Cramer NP 05/16/24 10:29 HPI - Anesthesia Eval Consult details Narrative: 74yo F for Colonoscopy PMFSH Active Problems Active Problems: All Active Problems Cataract (Acute) Pre-op evaluation (Acute) Neutropenia (Acute) Knee pain, left (Acute) White coat syndrome with hypertension (Acute) Chest pain (Acute) Colon cancer screening (Acute) Fall (on)(from) sidewalk curb, initial encounter (Acute) Laceration of skin of left knee without complication (Acute) Left knee injury (Acute) Hypertension, essential (Acute) Discomfort of right ear (Acute) Tachycardia (Acute) Elevated blood pressure reading (Acute) Breast screening (Acute) Diabetes 1.5, managed as type 2 (Acute) Past Medical History Medical History HTN (hypertension) White coat syndrome with hypertension Neutropenia PPD positive Colonoscopy refused Diabetes 1.5, managed as type 2 Family History Family History Father Diabetes mellitus Mother No problems noted. Sister No problems noted. Sister No problems noted. Sister No problems noted. Son No problems noted. Daughter No problems noted. Surgical History Surgical History Hx of cataract extraction History of hysterectomy Social History Social History Housing: House Are you a primary patient care technician instructor to a significant other at home: No Do you presently have visiting nurse or other home services: No Alcohol intake: never Patient Tobacco Use Status: Never used Tobacco e-Cigarette/Vaping Use: Never Used Have you been hit, kicked, punched, or otherwise hurt by someone within the past year? If so, by whom?: No Are you DNR?: No Advance Directives: No Advance Directives Information Provided: Yes Recently lost weight without trying: No Nutrition Risks: No Nutritional Risk service: No Current occupational status: retired Current occupation: Right hand dominant Cognitive needs: No Hearing needs: No Vision needs: Yes Meds Allergies Allergy/AdvReac Type Severity Reaction Status Date / Time diphtheria,pertussis Allergy Intermediate extensive Verified 05/17/24 09:37 (acell),tetanu swelling, redness, itching Exam Height,Weight and Vital Signs: Height 5 ft 5 in Weight 66.224 kg Assessment and Plan Assessment Anesthesia Assessment: Chart Reviewed Documented by User: Hien Carbone DO 05/17/24 10:57 PMFSH Past Medical History Medical History HTN (hypertension) White coat syndrome with hypertension Neutropenia PPD positive Colonoscopy refused Diabetes 1.5, managed as type 2 Family History Family History Father Diabetes mellitus Mother No problems noted. Sister No problems noted. Sister No problems noted. Sister No problems noted. Son No problems noted. Daughter No problems noted. Family history of problems with anesthesia: No Surgical History Surgical History Hx of cataract extraction History of hysterectomy History of Problems with Anesthesia: No Social History Social History Housing: House Are you a primary patient care technician instructor to a significant other at home: No Do you presently have visiting nurse or other home services: No Alcohol intake: never Patient Tobacco Use Status: Never used Tobacco e-Cigarette/Vaping Use: Never Used Have you been hit, kicked, punched, or otherwise hurt by someone within the past year? If so, by whom?: No Are you DNR?: No Advance Directives: No Advance Directives Information Provided: Yes Recently lost weight without trying: No Nutrition Risks: No Nutritional Risk service: No Current occupational status: retired Current occupation: Right hand dominant Cognitive needs: No Hearing needs: No Vision needs: Yes Meds Allergies Allergy/AdvReac Type Severity Reaction Status Date / Time diphtheria,pertussis Allergy Intermediate extensive Verified 05/17/24 09:37 (acell),tetanu swelling, redness, itching Exam Exam Date and Time: 05/17/24 1040 Height,Weight and Vital Signs: Height 5 ft 5 in Weight 66.224 kg Vital Signs Temperature 98.1 F 05/17/24 10:03 Pulse Rate 83 05/17/24 10:03 Respiratory Rate 18 05/17/24 10:03 Blood Pressure 148/77 H 05/17/24 10:03 Pulse Oximetry 99 05/17/24 10:03 Oxygen Delivery Method Room Air 05/17/24 10:03 Temperature 98.1 F 05/17/24 10:03 Pulse Rate 83 05/17/24 10:03 Respiratory Rate 18 05/17/24 10:03 Blood Pressure 148/77 H 05/17/24 10:03 Pulse Oximetry 99 05/17/24 10:03 Oxygen Delivery Method Room Air 05/17/24 10:03 Airway Mallampati Class: I TM Dist: >3cm Neck ROM: Full Loose/Missing/Broken Teeth: No (patient denies any loose or broken teeth) Heart: S1S2 Lungs: CTAB Assessment and Plan Assessment Anesthesia Assessment: Anesthesia Plan Discussed and Chart Reviewed Final Anesthetic Review Family History of Problems with Anesthesia: No History of Problems with Anesthesia: No NPO: Yes ASA Class: II Final Preanesthetic Review: No Changes in Pt Med Stat, Meds/Allgs Chart Reviewed, Consent Obtained/Reviewed and Anes Risks/Benef Reviewed Patient Risk: Low Procedure Risk: Low Anesthetic Plan Anesthetic Plan: MAC: and Agree w/ Assess. and Plan Disposition: Standard PACU
[2024-05-17 11:11] VITALS: BP 100/60; PULSE 71; RESP 16; TEMP 36.2; O2SAT 100
[2024-05-17 11:26] VITALS: BP 114/68; PULSE 66; RESP 18; TEMP 36.4; O2SAT 99
== END 2024-05-17 12:09 | disposition home or self-care (01) ==
PROVIDERS: PCP Internal Medicine; Visit Provider Internal Medicine
PROC: 0DJD8ZZ Inspection of Lower Intestinal Tract, Via Natural or Artificial Opening Endoscopic (ICD-10-PCS; CPT 45378; principal; 2024-05-17 09:20)
DX: Z12.11 Encounter for screening for malignant neoplasm of colon (principal); K64.8 Other hemorrhoids; E11.9 Type 2 diabetes mellitus without complications; Z90.710 Acquired absence of both cervix and uterus; Z79.84 Long term (current) use of oral hypoglycemic drugs; Z79.899 Other long term (current) drug therapy
CPT/HCPCS: G0121; 82947; J2003; J2704

== ENCOUNTER → 2024-05-17 09:31 | Outpatient (BNV) | payer MEDICARE, MEDICAID, SELFPAY | PROVIDERS: PCP Internal Medicine; Visit Provider Internal Medicine | DX: Z12.11 Encounter for screening for malignant neoplasm of colon (principal); K64.8 Other hemorrhoids; Z91.199 Patient's noncompliance with other medical treatment and regimen due to unspecified reason | CPT/HCPCS: G0121 ==

== ENCOUNTER 2024-10-01 09:48 | Outpatient (REF) | payer MEDICARE, MEDICAID, SELFPAY ==
--- OUTSIDE RECORDS SUMMARY | 2024-10-01 11:10 | XMS_ITS | Clinical Summary ---
Author Organization [facility] Address [address] [place] [address] Care Team Providers Care Underpresser Hand Name Role Phone Unavailable Primary Care Provider Unavailabl e Social History Tobacco Use Types Packs/Day Years Used Date Smoking Tobacco: Never Assessed Comments Unknown Sex and Gender Information Value Date Recorded Sex Assigned at Not on file Legal Sex Female 12:14 PM EST Gender Identity Not on file Sexual Orientation Not on file Plan of Treatment Health Maintenance Due Date Last Done Comments DTaP,Tdap,and Td Vaccines (1 - Tdap) 1970 Pneumococcal Vaccine: 50+ Years (1 of 1 - PCV) 2001 Zoster Vaccines (1 of 2) 2001 Colorectal Cancer Screening: Colonoscopy 07/05/2022 Depression Screening 07/05/2022 Falls Risk Assessment 07/05/2022 Hepatitis C Screening 07/05/2022 Osteoporosis Screening (Bone Density Screening) 07/05/2022 Social Influencers of Health Screening 07/05/2022 COVID-19 Vaccine ( - season) 2024 Influenza Vaccine (#1) 2024 Breast Cancer Screening 07/24/2025 07/24/20 23, 06/13/2022, 06/07/2021, Additional history exists RSV Immunization Patients 60+ Years Old (1 - 1-dose 75+ series) 2026 HIB Vaccines Aged Out No longer eligi ble based on patient's age to complete this topic HPV Vaccines Aged Out No longer eligi ble based on patient's age to complete this topic Hepatitis A Vaccines Aged Out No long er eligible based on patient's age to complete this topic Hepatitis B Vaccines Aged Out No long er eligible based on patient's age to complete this topic IPV Vaccines Aged Out No longer eligi ble based on patient's age to complete this topic MMR Vaccines Aged Out No longer eligi ble based on patient's age to complete this topic Meningococcal ACWY Vaccine Aged Out N o longer eligible based on patient's age to complete this topic Meningococcal B Vacine Aged Out No lo nger eligible based on patient's age to complete this topic RSV Immunization Patients Under 20 months Aged Out No longer eligible based on patient's age to complete this topic Varicella Vaccines Aged Out No longer eligible based on patient's age to complete this topic Procedures Procedure Name Priority Date/Time Associated Diagnosis Comments [facility] SCREENING DIGITAL Routine 07/24/2023 4:40 PM EST Encounter for screening mammogram for malignant neoplasm of breast from Last 3 Months or Most Recently Relevant to Health Maintenance Results * [facility] SCREENING DIGITAL (07/24/2023 4:40 PM EST) Anatomical Region Laterality Modality Mammography 07/24/2023 2:37 PM EST Narrative 07/24/2023 4:[address] [facility] Diagnostic Imaging Department [address] [place], [place] [id number] Patient: ??LEONORARNAVKRISTINA Willa ?/Age/Sex: 1950 - 73 - F Unit#: ??[id number] ? Location/Status: ??SPDIMAM/REG CLI ? Mnemonic/Ordering Site: ??DIGSC/SPMAM Ordering Physician: ??LO MORENO MD [facility] Screening Digital - 07/24/23 - [id number] Report Status:Signed EXAM: [facility] Screening Digital EXAM DATE AND TIME: 07/24/2023 3:56 PM HISTORY: ??Screening. COMPARISON: ??06/11/22, 06/05/21, 05/09/19 TECHNIQUE: Bilateral digital breast tomosynthesis was performed in the CC and MLO projections. Computer aided detection with [employer] 3D 3.1 was employed. TISSUE DENSITY: b. There are scattered areas of fibroglandular density. FINDINGS: No suspicious masses, grouped microcalcifications, or areas of architectural distortion are seen. Scattered microcalcifications are unchanged. The skin and vascularity are unremarkable. IMPRESSION: Stable mammographic appearance of the breasts. ??No evidence of malignancy is seen. A negative mammogram in the presence of a clinically suspicious palpable abnormality does not preclude the possibility of malignancy or alter the indications for biopsy. BI-RADS: ??Category 2: Benign RECOMMENDATION(S): 1: Routine screening mammogram BILATERAL in 1 year. Dictating Physician: ??ANDREE KC MD Electronically Signed by: ??ANDREE KC MD Dic Date/Time: ??07/24/23 1640 Sign date/Time: ??07/24/23 1640 Procedure Note Andree Kc MD - 09/12/2023 [facility] Diagnostic Imaging Department [address] [place], [place] [id number] Patient: BRYSON BURROUGHS Willa /Age/Sex: 1950 - 73 - F Unit#: [id number] Location/Status: [facility]/REG CLI Mnemonic/Ordering Site: [facility] Ordering Physician: LO MORENO MD [facility] Screening Digital - 07/24/23 - [id number] Report Status:Signed EXAM: [facility] Screening Digital EXAM DATE AND TIME: 07/24/2023 3:56 PM HISTORY: Screening. COMPARISON: 06/11/22, 06/05/21, 05/09/19 TECHNIQUE: Bilateral digital breast tomosynthesis was performed in the CCand MLO projections. Computer aided detection with [employer] 3D 3.1was employed. TISSUE DENSITY: b. There are scattered areas of fibroglandular density. FINDINGS: No suspicious masses, grouped microcalcifications, or areas ofarchitectural distortion are seen. Scattered microcalcifications are unchanged. The skinand vascularity are unremarkable. IMPRESSION: Stable mammographic appearance of the breasts. No evidence of malignancyis seen. A negative mammogram in the presence of a clinically suspicious palpable abnormality does not preclude the possibility of malignancy or alter the indications for biopsy. BI-RADS: Category 2: Benign RECOMMENDATION(S): 1: Routine screening mammogram BILATERAL in 1 year. Dictating Physician: ANDREE KC MD Electronically Signed by: ANDREE KC MD Dic Date/Time: 07/24/23 1640 Sign date/Time: 07/24/23 1640 us Lo Moreno MD IMG BI PROCEDURES Final Result from Last 3 Months or Most Recently Relevant to Health Maintenance
--- OUTSIDE RECORDS SUMMARY | 2024-10-01 11:10 | XMS_ITS | Clinical Summary ---
Author Organization [facility] Address [address] [place] [id number] Care Team Providers Care Clearance Coordinator Name Role Phone Unavailable Primary Care Provider Unavailabl e Source Comments PLEASE NOTE, if this patient is a minor, it may be UNLAWFUL to discuss sensitive information that is contained in these records (such as FAMILY PLANNING, MENTAL HEALTH or SUBSTANCE ABUSE) with the minor patient's parent or other person without the patient's specific authorization.[facility] Allergies No known active allergies Medications GLIPIZIDE ORAL Take by mouth Active losartan potassium (LOSARTAN ORAL) Take by mouth Active Active Problems No known active problems Social History Tobacco Use Types Packs/Day Years Used Date Smoking Tobacco: Never Smokeless Tobacco: Never Tobacco Cessation:Counseling Given: Not Answered Social Connections Answer Date Recorded Connectedness 0 04/22/2024 Financial Resource Strain Answer Date R ecorded Financial Resource Strain 0 2019 Stress Answer Date Recorded Stress 0 12/20/2019 Physical Activity Answer Date Recorded Physical Activity 0 12/20/2019 Food Insecurity Answer Date Recorded Food 0 05/02/2024 Transportation Needs Answer Date Record ed Transportation 0 12/20/2019 Housing Stability Answer Date Recorded Housing 0 12/20/2019 Safety and Environment Answer Date Jomar rded Safety 0 12/20/2019 Utilities Answer Date Recorded Utilities 0 12/20/2019 Employment Answer Date Recorded Stress 0 04/22/2024 Comments Unknown Sex and Gender Information Value Date Recorded Sex Assigned at Not on file Legal Sex Female 1:51 PM PDT Gender Identity Not on file Sexual Orientation Not on file Last Filed Vital Signs Vital Sign Reading Time Taken Comments Blood Pressure 101/76 02/08/2023 1:50 PM EDT Pulse 80 02/08/2023 1:50 PM EDT Temperature - - Respiratory Rate - - Oxygen Saturation - - Inhaled Oxygen Concentration - - Weight - - Height - - Body Mass Index - - Plan of Treatment Upcoming Encounters Date Type Department Care Team (Late st Contact Info) Description 11/26/2024 9:40 AM EDT Office Visit [facility] [address] [place] [id number] [address] [place], [facility] [address] [place] [address] Health Maintenance Due Date Last Done Comments Dental FMX/Pano 1950 Hepatitis C Screening 1950 Lipid Screening 1950 Imm-DTaP/Tdap/Td (1 - Tdap) 1970 Breast Cancer Screening (Mammogram) 1991 CT Colonography 1996 Colonoscopy 1996 Colorectal Cancer Screening 1996 FIT/gFOBT 1996 Fecal DNA 1996 Flexible Sigmoidoscopy 1996 Imm-Pneumococcal 65+ (1 of 1 - PCV) 2001 Imm-Zoster, Recombinant (1 of 2) 2001 Bone Density Screening 2016 Falls Prevention 2016 Hypertension Screening (#1) 02/08/2024 [id number] ( season) 2024 Imm-Influenza (#1) 2024 Alcohol and Drug Screen 08/07/2024 Depression Annual Screen 08/07/2024 Tobacco Screening 10/11/2024 10/12/2023 Dental Perio Charting 10/13/2024 10/12/2023 Dental BW 05/29/2025 05/27/2024, 03/0 02/2024, 02/08/2023, Additional history exists Dental Examination 05/29/2025 05/27/2024, 0 10/12/2023, 02/08/2023, Additional history exists Dental Prophy 05/29/2025 05/27/2024, 03/0 02/2024, 02/08/2023, Additional history exists Procedures Procedure Name Priority Date/Time Associated Diagnosis Comments BITEWINGS - FOUR RADIOGRAPHIC IMAGES Routine 05/27/2024 9:40 AM EDT Caries Encounter for dental examination and cleaning without abnormal findings PROPHYLAXIS - ADULT Routine 05/27/2024 9 :40 AM EDT Caries Encounter for dental examination and cleaning without abnormal findings PERIODIC ORAL EVALUATION ESTABLISHED PATIENT Routine 05/27/2024 9:40 AM EDT Caries Encounter for dental examination and cleaning without abnormal findings COMP PERIODONTAL EVALUATION - NEW/EST PATIENT Routine 10/12/2023 10:20 AM EST Encounter for dental examination and cleaning without abnormal findings from Last 3 Months or Most Recently Relevant to Health Maintenance Insurance [place] MEDICAID [place]
[2024-10-01 13:20] LABS: MANUAL DIFF FLAG NO
[2024-10-01 13:33] LABS: Basophils Percent Auto 0.2 % (0-2); Eosinophils Percent Auto 0.4 % (0-4); Hematocrit 40.8 % (37.0-47.0); Hemoglobin 12.6 g/dl (12.0-16.0); Imm Gran Abs Auto 0.02 X10*3/uL (0.00-0.03); Imm Gran Pct Auto 0.4 % (0.0-0.4); Lymphocytes Absolute Auto 2.3 X10*3/uL (1.2-4.9); Lymphocytes Percent Auto 51.7 % (20-40); Mean Corpuscular HGB Conc 30.9 g/dl (31.0-35.0); Mean Corpuscular Hemoglobin 27.3 pg (27.0-33.0); Mean Corpuscular Volume 88.3 fL (80.0-98.0); Mean Platelet Volume 11.7 fL (9.4-12.3); Monocytes Absolute Auto 0.4 X10*3/uL (0.1-1.2); Monocytes Percent Auto 7.9 % (2-11); Neutrophils Absolute Auto 1.8 x10*3/uL (2.0-8.3); Neutrophils Percent Auto 39.4 % (45-73); Platelet Count 242 X10*3/uL (160-400); Red Blood Count 4.62 X10*6/uL (4.20-5.50); Red Cell Distribution Width 13.1 % (11.0-16.0); White Blood Count 4.5 X10*3/uL (4.8-10.8)
[2024-10-01 13:44] LABS: Alanine Aminotransferase 22 U/L (0-31); Albumin Level 4.4 g/dL (3.5-5.0); Alkaline Phosphatase 96 U/L (39-117); Anion Gap 13 (12-20); Aspartate Amino Transferase 24 U/L (5-31); Bilirubin Total 0.5 mg/dL (0.0-1.0); Blood Urea Nitrogen 14 mg/dL (9-16); Calcium 9.8 mg/dL (8.4-10.2); Carbon Dioxide 27 mmol/L (22-29); Chloride 105 mmol/L (96-108); Cholesterol 161 mg/dL (<200); Estimated Average Glucose 160 mg/dL; Estimated Glomerular Filt Rate > 60; Glucose Fasting 133 mg/dL (60-99); HDL Cholesterol 69 mg/dL (>40); Hemoglobin A1c % 7.2 % (<6.0); LDL Cholesterol Calculated 79 mg/dL (<100); Potassium 4.5 mmol/L (3.3-5.1); Sodium 140 mmol/L (135-145); Total Hemoglobin (HGBA1C) 3354.1472 umol/L; Total Protein 7.7 g/dL (6.5-8.0); Triglycerides 68 mg/dL (<150)
[2024-10-01 13:47] LABS: Creatinine Urine 17.26 mg/dL; Microalbumin Urine < 5.0 mg/L
== END 2024-10-01 09:49 | disposition home or self-care (01) ==
LOC: HO.HMGCLDS 09:48
PROVIDERS: PCP Internal Medicine; Visit Provider Internal Medicine
DX: E13.9 Other specified diabetes mellitus without complications (principal); I10 Essential (primary) hypertension
CPT/HCPCS: 36415; 80053; 80061; 82570; 83036; 85025

== ENCOUNTER 2024-10-02 12:03 | Outpatient (AMB) | payer MEDICARE, MEDICAID, SELFPAY ==
[2024-10-02 12:07] VITALS: BP 126/68; PULSE 78; O2SAT 96; BMI 23.6
--- NOTE | 2024-10-02 12:07 | A.OFFPC_ITS ---
Vital Signs 10/02/24 12:07 Height 5 ft 5 in Weight 142 lb BMI 23.6 BP 126/68 Blood Pressure Location Lt brachial Position Sitting Pulse 78 Pulse Source Pulse Oximeter Pulse Oximetry (%) 96 Oxygen Delivery Method Room Air Intake Visit Reasons: 3 months F/U Allergies diphtheria,pertussis (acell),tetanu Allergy (Intermediate, Verified 10/02/24 12:07) extensive swelling, redness, itching Medication List - Last Reconciled 10/02/24 by Lo Dodge MD losartan 50 mg PO DAILY metformin ER 750 mg PO DAILY Tobacco use date assessed: 10/02/24 Fall risk assessment: No Falls in past year Last assessed Fall Risk: 10/02/24 Dental Screening Dental Screen Date: 10/02/24 Did you have a dental visit in the last 12 months?: Yes Did you have a dental problem in the last 6 months where you did not have access to dental care?: No Was dental information given to patient?: Patient has dentist HPI 3 months F/U HPI Details Patient is 74-year-old female came in today for her regular follow-up appointment Diabetes mellitus: Currently patient is on metformin 750 mg once a day, hemoglobin A1c is 7.2 just checked this month Hypertension: patient is on losartan 50 mg , tolerating medication no side effects blood pressure is stable Patient have chronic mild neutropenia, we will continue to monitor Follow-up 4 months labs to be done before visit order placed Patient is going away to [facility] and wont be back until end of mar or early apr she will return then for follow up [facility] Medical History HTN (hypertension) White coat syndrome with hypertension Neutropenia PPD positive Colonoscopy refused Diabetes 1.5, managed as type 2 Surgical History Hx of cataract extraction History of hysterectomy Family History Father Diabetes mellitus Mother No problems noted. Sister No problems noted. Sister No problems noted. Sister No problems noted. Son No problems noted. Daughter No problems noted. Social History Housing: House Are you a primary critical care unit nurse to a significant other at home: No Do you presently have visiting nurse or other home services: No Alcohol intake: never Patient Tobacco Use Status: Never used Tobacco e-Cigarette/Vaping Use: Never Used service: No Current occupational status: retired Current occupation: Right hand dominant Cognitive needs: No Hearing needs: No Vision needs: Yes Questionnaire PHQ-9 Over the last 2 weeks, how often have you been bothered by any of the following problems? 1. Little interest or pleasure in doing things: not at all 2. Feeling down, depressed, or hopeless: not at all 3. Trouble falling or staying asleep, or sleeping too much: not at all 4. Feeling tired or having little energy: not at all 5. Poor appetite or overeating: not at all 6. Feeling bad about yourself - or that you are a failure or have let yourself or your family down: not at all 7. Trouble concentrating on things, such as reading the newspaper or watching television: not at all 8. Moving or speaking so slowly that other people could have noticed. Or the opposite - being so fidgety or restless that you have been moving around a lot more than usual: not at all 9. Thoughts that you would be better off or of hurting yourself in some way: not at all Total score: 0 Depression Screening Interpretation: Negative Depression Screening Done: Yes 02343 - PHQ-9 Billing: Yes Source: Developed by Drs. Nilesh López, Virginia Morrison, Baldemar Carbajal and colleagues, with an educational josafat from [employer]. Thrive Questionnaire Date Thrive assessed: 10/02/24 I am a: Patient What is your living situation today?: I have a steady place to live Within the past 12 months, did the food you bought not last and you didn't have the money to get more?: I choose not to answer this question Within the past 12 months, did you worry whether your food would run out before you got money to buy more?: I choose not to answer this question Do you have trouble paying for medicines?: I choose not to answer this question Do you have trouble getting transportation to medical appointments?: I choose not to answer this question Do you have trouble paying your heating and electricity bill?: I choose not to answer this question Do you have trouble taking care of your child, family member or friend?: I choose not to answer this question Do you have trouble with day-to-day activities such as bathing, preparing meals, shopping, managing finances, etc.?: I choose not to answer this question Are you currently unemployed and looking for a job?: I choose not to answer this question Are you interested in more education?: I choose not to answer this question Please select the resources that you would like help with: None Currently or been in a relationship where the following occur: I choose not to answer THRIVE Score: 0 AUDIT C Alcohol Use Questionnaire (AUDIT-C) 1. How often do you have a drink containing alcohol?: Never 3. How often do you have six or more drinks on one occasion?: Never Total Score: 0 Score Reviewed/Action Taken: Yes KODY-7 AMB Questionnaire KODY-7 Date KODY - 7 assessed: 10/02/24 Feeling nervous, anxious, or on edge: 0 = Not at all Not being able to stop or control worryin = Not at all Worrying too much about different things: 0 = Not at all Trouble relaxin = Not at all Being so restless that it is hard to sit still: 0 = Not at all Becoming easily annoyed or irritable: 0 = Not at all Feeling afraid as if something awful might happen: 0 = Not at all Total KODY-7 score (0-4 normal; 5-9 mild; 10-14 moderate; 15-21 severe): 0 Source: Developed by Drs. Nilesh López, Virginia Morrison, Baldemar Carbajal and colleagues, with an educational josafat from [employer]. KODY-7 Assessment Billing KODY-7 Assessment Tool: KODY-7 Assessment 69683 Review of Systems Const Denies chills and Denies fever(s) ENT Denies epistaxis and Denies nasal discharge Card Denies chest pain Resp Denies chest congestion, Denies cough and Denies hemoptysis GI Denies diarrhea and Denies nausea Skin/Breast Denies rash Neuro Reports no additional complaints Psych Reports no additional complaints Endo Reports no additional complaints Physical exam (Primary Care) Vital Signs: Last Vital Signs Pulse 78 10/02/24 12:07 BP 126/68 10/02/24 12:07 Pulse Ox 96 10/02/24 12:07 Oxygen Delivery Method Room Air 10/02/24 12:07 BMI result Body Mass Index 23.6 Tobacco/Smoking Status: Tobacco use Status Tobacco use date assessed 10/02/24 10/02/24 12:11 Patient Tobacco Use Status Never used Tobacco 10/02/24 12:11 e-Cigarette/Vaping Use Never Used 10/02/24 12:11 PHQ-9: PHQ-9 Score PHQ-9: Total score 0 10/02/24 12:12 Depression Screening Interpretation: Negative Thrive Assessment: Date of Thrive Assessment Date Thrive assessed 10/02/24 10/02/24 12:12 Currently or been in a relationship where the following occur: I choose not to answer Const General: cooperative, comfortable and no acute distress Orientation/consciousness: patient oriented x3 HENMT Head: Yes normocephalic Eyes General: appearance normal, both eyes and all related structures Neck Neck: Yes supple Resp Effort & Inspection: normal respiratory effort, no cough and no stridor Cardio Rhythm: regular rhythm Heart sounds: S1 normal heart sound present and S2 normal heart sound present Skin General skin exam: turgor normal Neuro General: patient oriented x3, tone normal and moves all extremities Extrem Right lower extremity: no edema Left lower extremity: no edema Coding Level of Care Code Est Pt Level 3 (91213) Diagnoses Diabetes 1.5, managed as type 2 E13.9 Hypertension, essential I10 Neutropenia, unspecified type D70.9 Neutropenia type: unspecified Additional Codes KODY-7 Assessment Billing - KODY-7 Assessment Tool: KODY-7 Assessment 97450 ([id number]) PHQ-9 - 08495 - PHQ-9 Billing: Yes ([id number]) Assessment & Plan Assessment & Plan (1) Diabetes 1.5, managed as type 2: Code(s): E13.9 - Other specified diabetes mellitus without complications Category: Medical (2) Hypertension, essential: Code(s): I10 - Essential (primary) hypertension Category: Medical (3) Neutropenia: Code(s): D70.9 - Neutropenia, unspecified Category: Medical Qualifiers: Neutropenia type: unspecified Qualified Code(s): D70.9 - Neutropenia, unspecified Plan Patient is 74-year-old female came in today for her regular follow-up appointment Diabetes mellitus: Currently patient is on metformin 750 mg once a day, hemoglobin A1c is 7.2 just checked this month Hypertension: patient is on losartan 50 mg , tolerating medication no side effects blood pressure is stable Patient have chronic mild neutropenia, we will continue to monitor Follow-up 4 months labs to be done before visit order placed Patient is going away to [facility] and wont be back until end of mar or early apr she will return then for follow up Orders: Orders Hemoglobin A1c 3 Months D70.9 - Neutropenia, unspecified, E13.9 - Other specified diabetes mellitus without complications, I10 - Essential (primary) hypertension Complete Blood Count Auto Diff 3 Months D70.9 - Neutropenia, unspecified, E13.9 - Other specified diabetes mellitus without complications, I10 - Essential (primary) hypertension Comprehensive Met. Panel 3 Months D70.9 - Neutropenia, unspecified, E13.9 - Other specified diabetes mellitus without complications, I10 - Essential (primary) hypertension Medications: Refilled losartan 50 mg PO DAILY 90 tabs 1RF metformin ER 750 mg PO DAILY 90 tabs 1RF
--- OUTSIDE RECORDS SUMMARY | 2024-10-02 14:59 | XMS_ITS | Clinical Summary ---
Author Organization [facility] Address PO [place] [address] [place] [address] Care Team Providers Care Pathology Specialist Name Role Phone Unavailable Primary Care Provider [...] Description 11/26/2024 9:40 AM EDT Office Visit [facility] [address] [place] [phone] Mega Garay, [facility] [address] [place] [address] Health Maintenance Due Date Last Done Comments [...] Falls Prevention 2016 Hypertension Screening (#1) 02/08/2024 [id number] ( season) 2024 Imm-Influenza (#1) 2024 Alcohol [...] Most Recently Relevant to Health Maintenance Insurance [place] MEDICAID DENT[place]
--- OUTSIDE RECORDS SUMMARY | 2024-10-02 14:59 | XMS_ITS | Clinical Summary ---
Author Organization [facility] Address [address] [place] [address] Care Team Providers Care Director Business Name Role Phone Unavailable Primary Care Provider [...] Procedure Name Priority Date/Time Associated Diagnosis Comments [facility] SCREENING DIGITAL Routine 07/24/2023 4:40 PM EST Encounter for screening mammogram for malignant neoplasm of breast from Last 3 Months or Most Recently Relevant to Health Maintenance Results * [facility] SCREENING DIGITAL (07/24/2023 4:40 PM EST) Anatomical Region Laterality Modality Mammography 07/24/2023 2:37 PM EST Narrative 07/24/2023 4:40 PM EST [facility] Diagnostic Imaging Department [address] [place], [place] [id number] Patient: ??LEONORARNAVKRISTINA Willa ?/Age/Sex: 1950 - 73 - F Unit#: ??[id number] ? Location/Status: ??SPDIMAM/REG CLI ? Mnemonic/Ordering Site: ??DIGSC/SPMAM Ordering Physician: ??LO MORENO MD Alpesh Screening Digital - 07/24/23 - [id number] Report Status:Signed EXAM: Alpesh Screening Digital EXAM DATE AND TIME: 07/24/2023 3:56 PM HISTORY: ??Screening. COMPARISON: ??06/11/22, 06/05/21, 05/09/19 TECHNIQUE: Bilateral digital breast tomosynthesis was performed in the CC and MLO projections. Computer aided detection with [employer] 3D 3.1 was employed. TISSUE DENSITY: b. [...] Procedure Note Andree Kc MD - 09/12/2023 [facility] Diagnostic Imaging Department [address] [place], [place] [id number] Patient: BRYSON BURROUGHS Willa /Age/Sex: 1950 - 73 - F Unit#: [id number] Location/Status: [facility]/REG CLI Mnemonic/Ordering Site: [facility] Ordering Physician: LO MORENO MD [facility] Screening Digital - 07/24/23 - 1555 Report Status:Signed EXAM: [facility] Screening Digital EXAM DATE AND TIME: 07/24/2023 3:56 PM HISTORY: Screening. COMPARISON: 06/11/22, 06/05/21, 05/09/19 TECHNIQUE: Bilateral digital breast tomosynthesis was performed in the CCand MLO projections. Computer aided detection with [employer] 3D 3.1was employed. TISSUE DENSITY: b. There [...]
== END 2024-10-02 12:24 | disposition home or self-care (01) ==
PROVIDERS: PCP Internal Medicine; Visit Provider Internal Medicine
DX: E13.9 Other specified diabetes mellitus without complications (principal); I10 Essential (primary) hypertension; D70.9 Neutropenia, unspecified

== ENCOUNTER → 2024-10-02 12:03 | Outpatient (BNVA) | payer MEDICARE, MEDICAID, SELFPAY | PROVIDERS: PCP Internal Medicine; Visit Provider Internal Medicine | DX: E13.9 Other specified diabetes mellitus without complications (principal); I10 Essential (primary) hypertension; D70.9 Neutropenia, unspecified | CPT/HCPCS: 96127; 99212 ==

== ENCOUNTER 2025-03-31 09:30 | Outpatient (REF) | payer MEDICARE, MEDICAID, SELFPAY ==
--- OUTSIDE RECORDS SUMMARY | 2025-03-31 10:19 | XMS_ITS | Clinical Summary ---
Author Organization [facility] Address [address] [place] [address] [place] [address] Care Team Providers Care Project Engineer [employer]s Name Role Phone Unavailable Primary Care Provider [...] Sign Reading Time Taken Comments Blood Pressure 104/67 11/26/2024 2:35 PM EDT Pulse 74 11/26/2024 2:35 PM EDT Temperature - - Respiratory Rate - - Oxygen Saturation - - Inhaled Oxygen Concentration - - Weight - - Height - - Body Mass Index - - Plan of Treatment Upcoming Encounters Date Type Department Care Team (Late st Contact Info) Description 06/03/2025 9:40 AM EDT Office Visit [facility] [address] [place] [phone] [place] [place] [address] [place] [address] Health Maintenance Due Date Last Done Comments Dental FMX/Pano 1950 Hepatitis C Screening 1950 Lipid Screening 1950 Imm-DTaP/Tdap/Td (1 - Tdap) 1970 Breast Cancer Screening (Mammogram) 1991 CT Colonography 1996 Colonoscopy 1996 Colorectal Cancer Screening 1996 FIT/gFOBT 1996 Fecal DNA 1996 Flexible Sigmoidoscopy 1996 Imm-Pneumococcal 50+ (1 of 1 - PCV) 2001 Imm-Zoster, Recombinant (1 of 2) 2001 Bone Density Screening 2016 Falls Prevention 2016 [id number] ( season) 2024 Alcohol and Drug Screen 08/07/2024 Depression Annual Screen 08/07/2024 Imm-Influenza (#1) 2025 Hypertension Screening (#1) 11/26/2025 Tobacco Screening 11/26/2025 11/26/2024 Dental BW 11/28/2025 11/26/2024, 05/08, 10/12/2023, Additional history exists Dental Examination 11/28/2025 11/26/2024, 1 , 10/12/2023, Additional history exists Dental Perio Charting 11/28/2025 11/26/2024, 024 Dental Prophy 11/28/2025 11/26/2024, 05/08, 10/12/2023, Additional history exists Procedures Procedure Name Priority Date/Time Associated Diagnosis Comments COMP PERIODONTAL EVALUATION - NEW/EST PATIENT Routine 11/26/2024 9:40 AM EDT Encounter for dental examination BITEWINGS - FOUR RADIOGRAPHIC IMAGES Routine 11/26/2024 9:40 AM EDT Encounter for dental examination PROPHYLAXIS - ADULT Routine 11/26/2024 9 :40 AM EDT Encounter for dental examination PERIODIC ORAL EVALUATION ESTABLISHED PATIENT Routine 11/26/2024 9:40 AM EDT Encounter for dental examination from Last 3 Months or Most Recently Relevant to Health Maintenance Insurance [place]
--- OUTSIDE RECORDS SUMMARY | 2025-03-31 10:19 | XMS_ITS | Clinical Summary ---
Author Organization [facility] Address [address] [place] [address] Phone Care Team Providers Care Survey Research Manager Name Role Phone Lo Moreno MD Primary Care Provider [phone] Allergies No known active allergies Medications amoxicillin (AMOXIL) 500 mg capsule Take 2 capsules (1,000 mg total) by mouth 1 (one) time each day for 10 days. 20 each 5 03/08/20 25 ciprofloxacin-d exAMETHasone (CIPRODEX) otic suspension Administer 4 drops into the right ear 2 (two) times a day for 7 days. 5 mL 5 03/05/20 25 Active Problems No known active problems Encounters Date Type Department Care Team Description 02/26/2025 5:02 AM EDT - 02/26/2025 5:55 AM EDT Emergency [facility] Emergency [address] [place] [address] Non-recurrent acute suppurative otitis media of right ear without spontaneous rupture of tympanic membrane (Primary Dx); Acute otitis externa of right ear, unspecified type Discharge Disposition: Home or Self Care from Last 3 Months Social History Tobacco Use Types Packs/Day Years Used Date Smoking Tobacco: Never Assessed Comments Unknown Sex and Gender Information Value Date Recorded Sex Assigned at Not on file Legal Sex Female 12:14 PM EST Gender Identity Not on file Sexual Orientation Not on file Obstetrics History Last Filed Vital Signs Vital Sign Reading Time Taken Comments Blood Pressure 167/74 02/26/2025 4:54 AM EDT Pulse 67 02/26/2025 4:54 AM EDT Temperature 36.5 C (97.7 F) 02/26/2025 4:54 AM EDT Respiratory Rate 18 02/26/2025 4:54 AM EDT Oxygen Saturation 100% 02/26/2025 4:54 AM EDT Inhaled Oxygen Concentration - - Weight 65.8 kg (145 lb) 02/26/2025 4:54 AM EDT Height 165.1 cm (5' 5 ) 02/26/2025 4:54 AM EDT Body Mass Index 24.13 02/26/2025 4:54 AM EDT Plan of Treatment Health Maintenance Due Date Last Done Comments Pneumococcal Vaccine: 50+ Years (1 of 1 - PCV) 2001 Zoster Vaccines (1 of 2) 2001 Colorectal Cancer Screening: Colonoscopy 07/05/2022 Falls Risk Assessment 07/05/2022 Hepatitis C Screening 07/05/2022 Medicare Annual Wellness Visit 07/05/2022 Osteoporosis Screening (Bone Density Screening) 07/05/2022 Social Influencers of Health Screening 07/05/2022 COVID-19 Vaccine ( - season) 2024 07/08/2021, 11/20/2020, 10/29/2020 Depression Screening 08/07/2024 Influenza Vaccine (#1) 2025 Breast Cancer Screening 07/24/2025 07/24/20, 06/13/2022, 06/07/2021, Additional history exists RSV Immunization Adult Patients (1 - 1-dose 75+ series) 2026 DTaP,Tdap,and Td Vaccines (2 - Td or Tdap) 04/29/2033 04/29/2023 HIB Vaccines Aged Out No longer eligi [...] age to complete this topic Meningococcal B Vaccine Aged Out No l onger eligible based on patient's age to complete this topic RSV Immunization Patients Under 20 months Aged Out No longer eligible based on patient's age to complete this topic Varicella Vaccines Aged Out No longer eligible based on patient's age to complete this topic Procedures Procedure Name Priority Date/Time Associated Diagnosis Comments [facility] SCREENING DIGITAL Routine 07/24/2023 4:40 PM EST Encounter for screening mammogram for malignant neoplasm of breast from Last 3 Months or Most Recently Relevant to Health Maintenance Results * [facility] SCREENING DIGITAL (07/24/2023 4:40 PM EST) Anatomical Region Laterality Modality Mammography 07/24/2023 2:37 PM EST Narrative 07/24/2023 4:40 PM EST [facility] Diagnostic Imaging Department [address] [place] [address] Patient: BRYSON BURROUGHS O /Age/Sex: 1950 - 73 - F Unit#: [id number] Location/Status: [facility] CLI Mnemonic/Ordering Site: [facility] Ordering Physician: LO MORENO MD Alpesh Screening Digital - 07/24/23 - [id number] Report Status:Signed EXAM: Alpesh Screening Digital EXAM DATE AND TIME: 07/24/2023 3:56 PM HISTORY: Screening. COMPARISON: 06/11/22, 06/05/21, 05/09/19 TECHNIQUE: Bilateral digital breast tomosynthesis was performed in the CC and MLO projections. Computer aided detection with [employer] 3D 3.1 was employed. TISSUE DENSITY: b. There are scattered areas of fibroglandular density. FINDINGS: No suspicious masses, grouped microcalcifications, or areas of architectural distortion are seen. Scattered microcalcifications are unchanged. The skin and vascularity are unremarkable. IMPRESSION: Stable mammographic appearance of the breasts. No evidence of malignancy is seen. A negative mammogram in the presence of a clinically suspicious palpable abnormality does not preclude the possibility of malignancy or alter the indications for biopsy. BI-RADS: Category 2: Benign RECOMMENDATION(S): 1: Routine screening mammogram BILATERAL in 1 year. Dictating Physician: ANDREE KC MD Electronically Signed by: ANDREE KC MD Dic Date/Time: 07/24/23 1640 Sign date/Time: 07/24/23 1640 Procedure Note Andree Kc MD - 09/12/2023 [facility] Diagnostic Imaging Department [address] [place] [address] Patient: BRYSON BURORUGHS Willa /Age/Sex: 1950 - 73 - F Unit#: [id number] Location/Status: [facility] CLI Mnemonic/Ordering Site: [facility] Ordering Physician: LO MORENO MD [facility] Screening Digital - 07/24/23 - 1555 Report Status:Signed EXAM: [facility] Screening Digital EXAM DATE AND TIME: 07/24/2023 3:56 PM HISTORY: Screening. COMPARISON: 06/11/22, 06/05/21, 05/09/19 TECHNIQUE: Bilateral digital breast tomosynthesis was performed in the CCand MLO projections. Computer aided detection with [employer] 3D 3.1was employed. TISSUE DENSITY: b. There [...] Date/Time: 07/24/23 1640 Sign date/Time: 07/24/23 1640 oL Moreno MD IMG BI PROCEDURES Final Result from Last 3 Months or Most Recently Relevant to Health Maintenance Insurance [place] - [place] MEDICARE Care Teams Survey Research Manager Relationship Specialty Start Date End Date Lo Moreno MD [address] [place] [phone] PCP - General Internal Medicine 02/26/25
[2025-03-31 13:34] LABS: MANUAL DIFF FLAG NO
[2025-03-31 13:44] LABS: Hematocrit 39.7 % (37.0-47.0); Hemoglobin 12.7 g/dl (12.0-16.0); Imm Gran Abs Auto 0.01 X10*3/uL (0.00-0.03); Imm Gran Pct Auto 0.2 % (0.0-0.4); Lymphocytes Absolute Auto 2.1 X10*3/uL (1.2-4.9); Mean Corpuscular HGB Conc 32.0 g/dl (31.0-35.0); Mean Corpuscular Hemoglobin 27.7 pg (27.0-33.0); Mean Corpuscular Volume 86.7 fL (80.0-98.0); NRBC Abs Auto 0.000 X10*3/uL (0.0-0.012); NRBC Pct Auto 0.0 /100WBC (0.0-0.2); Platelet Count 291 X10*3/uL (160-400); Red Blood Count 4.58 X10*6/uL (4.20-5.50); White Blood Count 4.2 X10*3/uL (4.8-10.8)
[2025-03-31 13:53] LABS: Alanine Aminotransferase 22 U/L (0-31); Albumin Level 4.8 g/dL (3.5-5.0); Alkaline Phosphatase 101 U/L (39-117); Anion Gap 14 (12-20); Aspartate Amino Transferase 27 U/L (5-31); Blood Urea Nitrogen 11 mg/dL (9-16); Calcium 10.1 mg/dL (8.4-10.2); Carbon Dioxide 29 mmol/L (22-29); Chloride 103 mmol/L (96-108); Estimated Glomerular Filt Rate > 60; Potassium 4.9 mmol/L (3.3-5.1); Sodium 141 mmol/L (135-145); Total Protein 7.5 g/dL (6.5-8.0)
[2025-03-31 16:11] LABS: Hemoglobin A1C 183.2730 umol/L; Total Hemoglobin (HGBA1C) 3354.6676 umol/L
== END 2025-03-31 09:31 | disposition home or self-care (01) ==
LOC: HO.HMGCLDS 09:30
PROVIDERS: PCP Internal Medicine; Visit Provider Internal Medicine
DX: I10 Essential (primary) hypertension (principal); E13.9 Other specified diabetes mellitus without complications; D70.9 Neutropenia, unspecified
CPT/HCPCS: 36415; 80053; 83036; 85025

== ENCOUNTER 2025-04-02 10:00 | Outpatient (AMB) | payer MEDICARE, MEDICAID, SELFPAY ==
[2025-04-02 10:05] VITALS: BP 132/80; PULSE 86; RESP 18; TEMP 37.1; O2SAT 100; BMI 24.1
--- NOTE | 2025-04-02 10:05 | A.OFFPC_ITS ---
Vital Signs 04/02/25 10:05 Height 5 ft 5 in Weight 145 lb BMI 24.1 BP 132/80 Blood Pressure Location Lt brachial Position Sitting Respiration 18 Pulse 86 Pulse Source Pulse Oximeter Temp 98.7 F Temp Source Oral Pulse Oximetry (%) 100 Oxygen Delivery Method Room Air Intake Visit Reasons: 3 months F/U - see comments Allergies diphtheria,pertussis (acell),tetanu Allergy (Intermediate, Verified 04/02/25 10:06) extensive swelling, redness, itching Medication List - Last Reconciled 04/02/25 by Lo Dodge MD losartan 50 mg PO DAILY metformin ER 750 mg PO DAILY Tobacco use date assessed: 04/02/25 Fall risk assessment: No Falls in past year Last assessed Fall Risk: 04/02/25 Dental Screening Dental Screen Date: 10/02/24 HPI 3 months F/U - see comments HPI Details History The patient is a 74-year-old female presenting with right ear pain. And diabetes management Right ear pain: - Onset: Approximately two to three week s before the visit. - Initial occurrence caused the patient to visit the emergency room. - Pain was described as a terrible ache on the right side with a popping sensation during yawning and under pressure, such as during travel. - No prior travel was noted before the o nset. - Treatment received in ER: One-week cou rse of antibiotics and ear drops, name unknown to the patient. - This is the first severe episode in ab out five or six years, with prior instances treated with antibiotics. - No associated sore throat or fever rep orted. - Current status: Continues to experienc e pain despite prior treatment. - Current medication attempted: Tylenol, with inadequate relief. Medical History: - Chronic low white blood cell count, st able over time. - History of elevated Hemoglobin A1c, cu rrently improved. - Hypertension, managed with Losartan. Medications: - Losartan 50 mg, taken for blood pressu re control. - Metformin 750 mg daily, taken for diab etes management. Problem List - Right ear pain - Hypertension - Type 2 Diabetes Mellitus - Chronic leukopenia Diagnostic results - Labs: Stable chronic low white blood c ell count; Hemoglobin A1c is 7.1; normal platelet count; electrolytes within normal limit; intact kidney function; liver enzymes within normal limit. Patient Instructions - Continue Losartan as currently prescri bed for blood pressure control. - Continue Metformin as currently prescr ibed for diabetes management. - Consider taking prednisone for inflamm ation. - May add an antihistamine such as Zyrte c or Claritin if needed. - Use Ibuprofen for ear pain relief and inflammation, taken with food. - Contact if no improvement after five d ays of treatment with prednisone. Follow-up 4 months Review of Systems General: No fever no chills neurological: No headaches no dizziness cardiovascular: No syncope, no chest pain, no palpitations gastrointestinal: No nausea vomiting or diarrhea endocrine: No polyuria polydipsia no heat intolerance genitourinary: No dysuria skin: No new complaints Physical Exam general: No acute distress HEENT: Right ear ache, no redness, no inflammation outside, possible fluid inside neck: Supple respiratory system: Able to talk in full sentences, no audible wheeze no stridor cardiovascular: S1-S2 RRR gastrointestinal: No pain extremities: No new findings COMM[facility] COORDINATOR: Alert awake oriented x3 motor intact skin: Normal turgor PFSH Medical History HTN (hypertension) White coat syndrome with hypertension Neutropenia PPD positive Colonoscopy refused Diabetes 1.5, managed as type 2 Surgical History Hx of cataract extraction History of hysterectomy Family History Father Diabetes mellitus Mother No problems noted. Sister No problems noted. Sister No problems noted. Sister No problems noted. Son No problems noted. Daughter No problems noted. Social History Housing: House Are you a primary director medicare sales to a significant other at home: No Do you presently have visiting nurse or other home services: No Alcohol intake: never Patient Tobacco Use Status: Never used Tobacco e-Cigarette/Vaping Use: Never Used service: No Current occupational status: retired Current occupation: Right hand dominant Cognitive needs: No Hearing needs: No Vision needs: Yes Questionnaire Thrive Questionnaire Date Thrive assessed: 10/02/24 I am a: Patient What is your living situation today?: I have a steady place to live Within the past 12 months, did the food you bought not last and you didn't have the money to get more?: I choose not to answer this question Within the past 12 months, did you worry whether your food would run out before you got money to buy more?: I choose not to answer this question Do you have trouble paying for medicines?: I choose not to answer this question Do you have trouble getting transportation to medical appointments?: I choose not to answer this question Do you have trouble paying your heating and electricity bill?: I choose not to answer this question Do you have trouble taking care of your child, family member or friend?: I choose not to answer this question Do you have trouble with day-to-day activities such as bathing, preparing meals, shopping, managing finances, etc.?: I choose not to answer this question Are you currently unemployed and looking for a job?: I choose not to answer this question Are you interested in more education?: I choose not to answer this question Please select the resources that you would like help with: None Currently or been in a relationship where the following occur: I choose not to answer THRIVE Score: 0 KODY-7 AMB Questionnaire KODY-7 Date KODY - 7 assessed: 10/02/24 Source: Developed by Drs. Nilesh López, Virginia Morrison, Baldemar Carbajal and colleagues, with an educational josafat from [employer]. Physical exam (Primary Care) Vital Signs: Last Vital Signs Temp 98.7 F 04/02/25 10:05 Pulse 86 04/02/25 10:05 Resp 18 04/02/25 10:05 BP 132/80 04/02/25 10:05 Pulse Ox 100 04/02/25 10:05 Oxygen Delivery Method Room Air 04/02/25 10:05 BMI result Body Mass Index 24.1 Tobacco/Smoking Status: Tobacco use Status Tobacco use date assessed 04/02/25 04/02/25 10:12 Patient Tobacco Use Status Never used Tobacco 04/02/25 10:12 e-Cigarette/Vaping Use Never Used 04/02/25 10:12 Thrive Assessment: Date of Thrive Assessment Date Thrive assessed 10/02/24 04/02/25 10:12 Currently or been in a relationship where the following occur: I choose not to answer Coding Level of Care Code Est Pt Level 4 (17127) Complex EM visit Add On G2211 Diagnoses Hypertension, essential I10 Disorder of right eustachian tube H69.91 Right ear pain H92.01 Diabetes 1.5, managed as type 2 E13.9 Neutropenia, unspecified type D70.9 Neutropenia type: unspecified Assessment & Plan Assessment & Plan (1) Hypertension, essential: Code(s): I10 - Essential (primary) hypertension Category: Medical (2) Disorder of right eustachian tube: Code(s): H69.91 - Unspecified Eustachian tube disorder, right ear Category: Medical (3) Right ear pain: Code(s): H92.01 - Otalgia, right ear Category: Medical (4) Diabetes 1.5, managed as type 2: Code(s): E13.9 - Other specified diabetes mellitus without complications Category: Medical (5) Neutropenia: Code(s): D70.9 - Neutropenia, unspecified Category: Medical Qualifiers: Neutropenia type: unspecified Qualified Code(s): D70.9 - Neutropenia, unspecified Plan History The patient is a 74-year-old female presenting with right ear pain. And diabetes management Right ear pain: - Onset: Approximately two to three weeks before the visit. - Initial occurrence caused the patient to visit the emergency room. - Pain was described as a terrible ache on the right side with a popping sensation during yawning and under pressure, such as during travel. - No prior travel was noted before the onset. - Treatment received in ER: One-week course of antibiotics and ear drops, name unknown to the patient. - This is the first severe episode in about five or six years, with prior instances treated with antibiotics. - No associated sore throat or fever reported. - Current status: Continues to experience pain despite prior treatment. - Current medication attempted: Tylenol, with inadequate relief. Medical History: - Chronic low white blood cell count, stable over time. - History of elevated Hemoglobin A1c, currently improved. - Hypertension, managed with Losartan. Medications: - Losartan 50 mg, taken for blood pressure control. - Metformin 750 mg daily, taken for diabetes management. Problem List - Right ear pain secondary to eustachian tube disorder - Hypertension - Type 2 Diabetes Mellitus - Chronic leukopenia Diagnostic results - Labs: Stable chronic low white blood cell count; Hemoglobin A1c is 7.1; normal platelet count; electrolytes within normal limit; intact kidney function; liver enzymes within normal limit. Patient Instructions - Continue Losartan as currently prescribed for blood pressure control. - Continue Metformin as currently prescribed for diabetes management. - Consider taking prednisone for inflammation. - May add an antihistamine such as Zyrtec or Claritin if needed. - Use Ibuprofen for ear pain relief and inflammation, taken with food. - Contact if no improvement after five days of treatment with prednisone. Follow-up 4 months Orders: Orders LDL Cholesterol Direct 3 Months D70.9 - Neutropenia, unspecified, E13.9 - Other specified diabetes mellitus without complications, I10 - Essential (primary) hypertension Microalbumin, Random (w Creat) 3 Months D70.9 - Neutropenia, unspecified, E13.9 - Other specified diabetes mellitus without complications, I10 - Essential (primary) hypertension Hemoglobin A1c 3 Months D70.9 - Neutropenia, unspecified, E13.9 - Other specified diabetes mellitus without complications, I10 - Essential (primary) hypertension Complete Blood Count Auto Diff 3 Months D70.9 - Neutropenia, unspecified, E13.9 - Other specified diabetes mellitus without complications, I10 - Essential (primary) hypertension Comprehensive Met. Panel 3 Months D70.9 - Neutropenia, unspecified, E13.9 - Other specified diabetes mellitus without complications, I10 - Essential (primary) hypertension Medications: New prednisone 10 mg PO DAILY 5 tabs 0RF 5 days
--- OUTSIDE RECORDS SUMMARY | 2025-04-02 10:48 | XMS_ITS | Clinical Summary ---
Author Organization [facility] Address [address] [place] [id number] Care Team Providers Care Claims Processor Name Role Phone Unavailable Primary Care Provider [...] Description 06/03/2025 9:40 AM EDT Office Visit [facility] [address] [place] [phone] [address] [place] [address] Health Maintenance Due Date Last Done Comments [...] Bone Density Screening 2016 Falls Prevention 2016 [id number] ( season) 2024 Alcohol and Drug Screen [...] Most Recently Relevant to Health Maintenance Insurance [place] MEDICA[place] D[place]
--- OUTSIDE RECORDS SUMMARY | 2025-04-02 10:48 | XMS_ITS | Clinical Summary ---
Author Organization [facility] Address [address] [place] [address] Phone Care Team Providers Care Stone Crusher Operator Name Role Phone Lo Moreno MD Primary Care Provider [phone] Allergies No known active allergies Medications amoxicillin [...] EDT - 02/26/2025 5:55 AM EDT Emergency [facility] Emergency [address] [place] [address] Non-recurrent acute suppurative otitis media [...] Procedure Name Priority Date/Time Associated Diagnosis Comments [facility] SCREENING DIGITAL Routine 07/24/2023 4:40 PM EST Encounter for screening mammogram for malignant neoplasm of breast from Last 3 Months or Most Recently Relevant to Health Maintenance Results * [facility] SCREENING DIGITAL (07/24/2023 4:40 PM EST) Anatomical Region Laterality Modality Mammography 07/24/2023 2:37 PM EST Narrative 07/24/2023 4:40 PM EST [facility] Diagnostic Imaging Department [address] [place] [id number] Patient: BRYSON BURROUGHS O /Age/Sex: 1950 - 73 - F Unit#: [id number] Location/Status: [facility] Mnemonic/Ordering Site: [facility] Ordering Physician: LO MORENO MD Alpesh Screening Digital - 07/24/23 - [id number] Report Status:Signed EXAM: Alpesh Screening Digital EXAM DATE AND TIME: 07/24/2023 3:56 PM HISTORY: Screening. COMPARISON: 06/11/22, 06/05/21, 05/09/19 TECHNIQUE: Bilateral digital breast tomosynthesis was performed in the CC and MLO projections. Computer aided detection with [employer] 3D 3.1 was employed. TISSUE DENSITY: b. [...] Procedure Note Andree Kc MD - 09/12/2023 [facility] Diagnostic Imaging Department [address] [place] [address] Patient: BRYSON BURROUGHS Willa /Age/Sex: 1950 - 73 - F Unit#: [id number] Location/Status: [facility] CLI Mnemonic/Ordering Site: [facility] Ordering Physician: LO MORENO MD [facility] Screening Digital - 07/24/23 - [id number] Report Status:Signed EXAM: [facility] Screening Digital EXAM DATE AND TIME: 07/24/2023 3:56 PM HISTORY: Screening. COMPARISON: 06/11/22, 06/05/21, 05/09/19 TECHNIQUE: Bilateral digital breast tomosynthesis was performed in the CCand MLO projections. Computer aided detection with [employer] 3D 3.1was employed. TISSUE DENSITY: b. There [...] Date/Time: 07/24/23 1640 Sign date/Time: 07/24/23 1640 Lo Moreno MD IMG BI PROCEDURES Final Result from Last 3 Months or Most Recently Relevant to Health Maintenance Insurance MEDICAID - [place] MEDICARE Care Teams Stone Crusher Operator Relationship Specialty Start Date End Date Lo Moreno MD [address] [place] [phone] PCP - General Internal Medicine 02/26/25
== END 2025-04-02 10:26 | disposition home or self-care (01) ==
LOC: HO.HMCC 10:01
PROVIDERS: PCP Internal Medicine; Visit Provider Internal Medicine
DX: I10 Essential (primary) hypertension (principal); H69.91 Unspecified Eustachian tube disorder, right ear; H92.01 Otalgia, right ear; E13.9 Other specified diabetes mellitus without complications; D70.9 Neutropenia, unspecified

== ENCOUNTER → 2025-04-02 10:00 | Outpatient (BNVA) | payer MEDICARE, MEDICAID, SELFPAY | PROVIDERS: PCP Internal Medicine; Visit Provider Internal Medicine | DX: E13.9 Other specified diabetes mellitus without complications (principal); I10 Essential (primary) hypertension; D70.9 Neutropenia, unspecified; H69.91 Unspecified Eustachian tube disorder, right ear; H92.01 Otalgia, right ear | CPT/HCPCS: 99212 ==